=== PATIENT | female | born 1960 | race Caucasian/White ===

== ENCOUNTER 2022-05-30 12:42 | Emergency (ER) | payer BC ==
[2022-05-30] MEDS ORDERED: LIDOCAINE 1% MPF 30 ML VIAL ONE (13:31)
[2022-05-30] MEDS ORDERED: HYDROCODONE/APAP 10/325 TAB ONE (13:31)
--- NOTE | 2022-05-30 14:33 | ER ---
Nurse's Notes [facility] Name: Rosmery Leahy Age: 61 yrs Sex: Female : 1960 Arrival Date: 05/30/2022 Time: 12:46 Bed 8 Private MD: Diagnosis: Cutaneous abscess of face Presentation: 05/30 13:00 Chief complaint: Patient states: abscess to left side of face since Tuesday , swelling iw has spread to left orbital area. Coronavirus screen: At this time, the client does not indicate any symptoms associated with coronavirus-19. Ebola Screen: Patient negative for fever greater than or equal to 101.5 degrees Fahrenheit, and additional compatible Ebola Virus Disease symptoms Patient denies exposure to infectious person. Patient denies travel to an Ebola-affected area in the 21 days before illness onset. No symptoms or risks identified at this time. Initial Sepsis Screen: Does the patient meet any 2 criteria? No. Patient's initial sepsis screen is negative. Does the patient have a suspected source of infection? No. Patient's initial sepsis screen is negative. Risk Assessment: Do you want to hurt yourself or someone else? Patient reports no desire to harm self or others. Onset of symptoms was May 24, 2022. 13:00 Method Of Arrival: Ambulatory iw 13:00 Acuity: KWESI 3 iw Historical: - Allergies: 13:02 NKA; iw - Home Meds: 13:02 Atenolol Oral [Active]; amlodipine oral [Active]; iw - PMHx: 13:02 Hypertensive disorder; iw - PSHx: 13:02 ovary removed; iw - Immunization history:: Client reports receiving the 2nd dose of the Covid vaccine. - Social history:: Smoking status: Patient denies any tobacco usage or history of. - Family history:: not pertinent. - Hospitalizations: : No recent hospitalization is reported. Screenin:36 Abuse screen: Denies threats or abuse. Denies injuries from another. Nutritional ph screening: No deficits noted. Tuberculosis screening: No symptoms or risk factors identified. Fall Risk None identified. Assessment: 13:35 General: Appears in no apparent distress. comfortable, well groomed, Behavior is calm, ph cooperative, appropriate for age, Denies fever. Pain: Complains of pain in left sabianist. Neuro: Level of Consciousness is awake, alert, obeys commands, Oriented to person, place, time, situation. Derm: Skin is healthy with good turgor, Skin is pink, warm \T\ dry. Abscess located on left sabianist is half dollar sized, is red, is raised. Vital Signs: 13:00 BP 154 / 88; Pulse 70; Resp 16; Pulse Ox 100% on R/A; Weight 59.42 kg; Height 5 ft. 4 iw in. (162.56 cm); Pain 6/10; 14:05 BP 130 / 100; Pulse 69; Resp 18; Pulse Ox 99% on R/A; ph 15:00 BP 121 / 78; Pulse 67; Resp 18; Temp 97.9; Pulse Ox 99% on R/A; ph 13:00 Body Mass Index 22.49 (59.42 kg, 162.56 cm) iw ED Course: 12:46 Patient arrived in ED. am2 12:51 Brian Jauregui MD is Attending Physician. rn 12:52 Ivon Watson RN is Primary Nurse. ph 13:02 Triage completed. iw 13:03 Arm band placed on. iw 13:36 Patient has correct armband on for positive identification. Bed in low position. Pulse ph ox on. NIBP on. 14:20 Assist provider with I \T\ D: of an abscess on left sabianist. Patient did not have IV ph access during this emergency room visit. 15:26 Luan Day MD is Referral Physician. rn Administered Medications: 13:35 Drug: [place] (HYDROcodone-acetaminophen) 10 mg-325 mg 1 tabs Route: PO; ph 14:37 Follow up: Response: No adverse reaction ph 14:20 Drug: Lidocaine (1 %) 1 vials Volume: 20 ml; Route: Infiltration; ph 14:38 Follow up: Response: No adverse reaction ph Medication: 14:30 VIS not applicable for this client. ph Outcome: 13:36 Discharged to home ambulatory, with family. ph 13:36 Condition: good 13:36 Discharge instructions given to patient, Instructed on discharge instructions, follow up and referral plans. medication usage, wound care, Demonstrated understanding of instructions, follow-up care, medications, wound care, Prescriptions given X 2. 14:32 Discharge ordered by . rn 15:47 Patient left the ED. ph Signatures: Estela Stone RN Brian Gómez MD MD rn Hall, Patricia, Savanah Broussard RN, ph
--- NOTE | 2022-05-30 14:33 | EDPHYS ---
Physician Documentation [facility] Name: Rosmery Leahy Age: 61 yrs Sex: Female : 1960 Arrival Date: 05/30/2022 Time: 12:46 Bed 8 Private MD: ED Physician Brian Jauregui HPI: 05/30 14:20 This 61 yrs old Female presents to ER via Ambulatory with complaints of Facial Swelling rn - left mandaeism. 14:20 The patient presents with an abscess of the left mandaeism. Onset: The symptoms/episode rn began/occurred 5 day(s) ago. Possible cause(s): unknown. Associated signs and symptoms: Pertinent positives: swelling, Pertinent negatives: fever. Modifying factors: the symptoms are alleviated by nothing, the symptoms are aggravated by pressure, touching. Severity of symptoms: At their worst the symptoms were mild, in the emergency department the symptoms are unchanged. The patient has not experienced similar symptoms in the past. The patient has not recently seen a physician. Pt reports abscess/facial swelling to left mandaeism. No fever. Present for 5 days now, slowly growing and more painful. . Historical: - Allergies: 13:02 NKA; iw - Home Meds: 13:02 Atenolol Oral [Active]; amlodipine oral [Active]; iw - PMHx: 13:02 Hypertensive disorder; iw - PSHx: 13:02 ovary removed; iw - Immunization history:: Client reports receiving the 2nd dose of the Covid vaccine. - Social history:: Smoking status: Patient denies any tobacco usage or history of. - Family history:: not pertinent. - Hospitalizations: : No recent hospitalization is reported. ROS: 14:20 Constitutional: Negative for fever, chills, and weight loss, Eyes: Negative for injury, rn pain, redness, and discharge, ENT: Negative for injury, pain, and discharge, Cardiovascular: Negative for chest pain, palpitations, and edema, Respiratory: Negative for shortness of breath, cough, wheezing, and pleuritic chest pain, Abdomen/GI: Negative for abdominal pain, nausea, vomiting, diarrhea, and constipation, Skin: + swelling and pain to left mandaeism Exam: 14:20 Constitutional: This is a well developed, well nourished patient who is awake, alert, rn and in no acute distress. Head/Face: + cm area of fluctuance to left mandaeism, + surrounding erythema with mild swelling that extends to left periorbital region. No involvement of eye proper. Eyes: Pupils equal round and reactive to light, extra-ocular motions intact. Lids and lashes normal. Conjunctiva and sclera are non-icteric and not injected. Cornea within normal limits. Neuro: Awake and alert, GCS 15, oriented to person, place, time, and situation. Cranial nerves II-XII grossly intact. Motor strength 5/5 in all extremities. Sensory grossly intact. Cerebellar exam normal. Normal gait. Vital Signs: 13:00 BP 154 / 88; Pulse 70; Resp 16; Pulse Ox 100% on R/A; Weight 59.42 kg; Height 5 ft. 4 iw in. (162.56 cm); Pain 6/10; 14:05 BP 130 / 100; Pulse 69; Resp 18; Pulse Ox 99% on R/A; ph 15:00 BP 121 / 78; Pulse 67; Resp 18; Temp 97.9; Pulse Ox 99% on R/A; ph 13:00 Body Mass Index 22.49 (59.42 kg, 162.56 cm) iw Procedures: 14:20 I \T\ D: Incision and drainage was performed for an abscess of the. rn 14:24 I \T\ D: Prepped with Betadine, Anesthetized with 3 ml's 1% Lidocaine. Incised with #11 rn blade. Drained moderate amount purulent fluid. Packed with iodoform gauze, Dressing: sterile 4x4 gauze, the patient tolerated the procedure well. MDM: 12:52 Patient medically screened. rn 14:24 Differential diagnosis: abscess, cellulitis. Data reviewed: vital signs, nurses notes, rn and as a result, I will discharge patient. Counseling: I had a detailed discussion with the patient and/or guardian regarding: the historical points, exam findings, and any diagnostic results supporting the discharge/admit diagnosis, the need for outpatient follow up, to return to the emergency department if symptoms worsen or persist or if there are any questions or concerns that arise at home. Response to treatment: the patient's symptoms have mildly improved after treatment, and as a result, I will discharge patient. Special discussion: I discussed with the patient/guardian in detail that at this point there is no indication for admission to the hospital. It is understood, however, that if the symptoms persist or worsen the patient needs to return immediately for re-evaluation. Based on the history and exam findings, there is no indication for further emergent testing or inpatient evaluation. I discussed with the patient/guardian the need to see the primary care provider for further evaluation of the symptoms. 05/30 13:13 Order name: Incision \T\ Drainage Setup; Complete Time: 13:35 rn Administered Medications: 13:35 Drug: [place] (HYDROcodone-acetaminophen) 10 mg-325 mg 1 tabs Route: PO; ph 14:37 Follow up: Response: No adverse reaction ph 14:20 Drug: Lidocaine (1 %) 1 vials Volume: 20 ml; Route: Infiltration; ph 14:38 Follow up: Response: No adverse reaction ph Disposition Summary: 05/30/22 14:32 Discharge Ordered Location: Home rn Problem: new rn Symptoms: have improved rn Condition: Stable rn Diagnosis - Cutaneous abscess of face rn Followup: rn - With: Private Physician - When: 2 - 3 days - Reason: Recheck today's complaints, Re-evaluation by your physician Followup: rn - With: Luan Day MD - When: 2 - 3 days - Reason: Wound Recheck Discharge Instructions: - Discharge Summary Sheet rn - Skin Abscess rn - Incision and Drainage, Care After rn - Wound Packing rn Forms: - Medication Reconciliation Form rn - Thank You Letter rn - Antibiotic pipe turner - Prescription Opioid Use rn - Work release form ph Prescriptions: - Clindamycin HCl 300 mg Oral Capsule - take 1 capsule by ORAL route every 6 hours for 10 days; 40 capsule; Refills: 0, rn Product Selection Permitted - Tramadol 50 mg Oral Tablet - take 1 tablet by ORAL route every 8 hours as needed; 12 tablet; Refills: 0, rn Product Selection Permitted Signatures: Estela Stone RN RN Brian Verma MD MD rn Hall, Patricia, RN RN ph
[2022-05-30 15:53] VITALS: BP 130/100; O2SAT 99
== END 2022-05-30 15:47 | disposition home or self-care (01) ==
LOC: ER 12:42
PROC: 0H91XZZ Drainage of Face Skin, External Approach (ICD-10-PCS; principal; 2022-05-30)
DX: L02.01 Cutaneous abscess of face (principal); I10 Essential (primary) hypertension
CPT/HCPCS: 99284

== ENCOUNTER 2022-05-31 14:33 | Emergency (ER) | payer BC, SELFPAY ==
[2022-05-31] MEDS ORDERED: LIDOCAINE HCL JELLY 2% 6 ML SYRINGE TOP ONE (16:05)
[2022-05-31] MEDS ORDERED: IBUPROFEN 400 MG TAB ONE (16:06)
[2022-05-31] MEDS ORDERED: IBUPROFEN 200 MG TAB PO ONE (16:07)
[2022-05-31] MEDS ORDERED: HYDROCODONE/APAP 5/325 MG TAB ONE (16:08)
--- NOTE | 2022-05-31 16:40 | ER ---
Nurse's Notes [facility] Name: Rosmery Leahy Age: 61 yrs Sex: Female : 1960 Arrival Date: 05/31/2022 Time: 14:34 Bed 9 Private MD: Diagnosis: Encounter for attention to dressings, sutures and drains Presentation: 05/31 15:16 Chief complaint: Patient states: was seen yesterday in ED for wound on forehead and vg1 stated "the antibiotic dressing came out and was told it should stay in for a day in a half, im just a little concern". Coronavirus screen: Vaccine status: Client denies travel out of the [place] in the last 14 days. Ebola Screen: Patient negative for fever greater than or equal to 101.5 degrees Fahrenheit, and additional compatible Ebola Virus Disease symptoms Patient denies exposure to infectious person. Initial Sepsis Screen: Does the patient meet any 2 criteria? No. Patient's initial sepsis screen is negative. Does the patient have a suspected source of infection? No. Patient's initial sepsis screen is negative. Risk Assessment: Do you want to hurt yourself or someone else? Patient reports no desire to harm self or others. Onset of symptoms was May 31, 2022. 15:16 Method Of Arrival: Ambulatory vg1 15:16 Acuity: KWESI 4 vg1 Triage Assessment: 15:20 General: Appears in no apparent distress. uncomfortable, Behavior is calm, cooperative. vg1 Pain: Complains of pain in left sabianism. Historical: - Allergies: 15:20 NKA; vg1 - Home Meds: 15:20 Atenolol Oral [Active]; amlodipine oral [Active]; vg1 - PMHx: 15:20 Hypertensive disorder; vg1 - PSHx: 15:20 Ovary removed; vg1 - Immunization history:: Client reports receiving the 2nd dose of the Covid vaccine. - Social history:: Smoking status: Patient/guardian denies using tobacco, the patient reports quitting approximately 1 years ago. Screenin:46 Abuse screen: Denies threats or abuse. Nutritional screening: No deficits noted. kr3 Tuberculosis screening: No symptoms or risk factors identified. Fall Risk None identified. Assessment: 16:47 Reassessment: No changes from previously documented assessment. Patient and/or family kr3 updated on plan of care and expected duration. Pain level reassessed. Patient is alert, oriented x 3, equal unlabored respirations, skin warm/dry/pink. Vital Signs: 15:16 Pulse 75; Resp 16; Temp 98.5; Pulse Ox 100% ; Weight 59.42 kg; Height 5 ft. 4 in. vg1 (162.56 cm); Pain 6/10; 15:20 BP 145 / 89; vg1 16:47 BP 162 / 88; Pulse 75; Resp 17; Pulse Ox 100% on R/A; kr3 15:16 Body Mass Index 22.49 (59.42 kg, 162.56 cm) vg1 ED Course: 14:34 Patient arrived in ED. am2 15:11 Ton Costa PA is PHCP. cp 15:11 Brian Jauregui MD is Attending Physician. cp 15:16 Radha Kang, RN is Primary Nurse. kr3 15:20 Triage completed. vg1 15:20 Arm band placed on. vg1 15:25 Bed in low position. Call light in reach. Side rails up X 1. kr3 16:47 No provider procedures requiring assistance completed. Patient did not have IV access kr3 during this emergency room visit. Administered Medications: 16:16 Drug: Lidocaine Gel 2 % 1 application Route: Mucous Membrane; kr3 16:49 Follow up: Response: No adverse reaction kr3 16:16 Drug: HYDROcodone-acetaminophen 5 mg-325 mg 1 tabs Route: PO; kr3 16:48 Follow up: Response: No adverse reaction; RASS: Alert and Calm (0) kr3 16:16 Drug: Ibuprofen 600 mg Route: PO; kr3 16:48 Follow up: Response: No adverse reaction kr3 Medication: 16:47 VIS not applicable for this client. kr3 Outcome: 16:40 Discharge ordered by MD. cp 16:47 Discharged to home ambulatory. kr3 16:47 Condition: stable 16:47 Discharge instructions given to patient, Instructed on discharge instructions, follow up and referral plans. Demonstrated understanding of instructions, follow-up care. 16:48 Patient left the ED. kr3 Signatures: Ton Costa PA PA cp Moreno, Amanda am2 Sabrina Gunter RN RN vg1 Radha Kang, GLENN RN kr3
--- NOTE | 2022-05-31 16:40 | EDPHYS ---
Physician Documentation [facility] Name: Rosmery Leahy Age: 61 yrs Sex: Female : 1960 Arrival Date: 05/31/2022 Time: 14:34 Bed 9 Private MD: ED Physician Brian Jauregui HPI: 05/31 15:40 This 61 yrs old Female presents to ER via Ambulatory with complaints of Wound Recheck. cp 15:40 Patient presents to ED for recheck of: abscess. The affected area is on the left cp voodoo. Previous treatment: The patient was initially treated yesterday, the care was rendered at [facility], Treatment type: The patient's original treatment included an I\T\D, oral antibiotics, packing. Progress: The patient reports improved. Patient reports packing came out today. Historical: - Allergies: 15:20 NKA; vg1 - Home Meds: 15:20 Atenolol Oral [Active]; amlodipine oral [Active]; vg1 - PMHx: 15:20 Hypertensive disorder; vg1 - PSHx: 15:20 Ovary removed; vg1 - Immunization history:: Client reports receiving the 2nd dose of the Covid vaccine. - Social history:: Smoking status: Patient/guardian denies using tobacco, the patient reports quitting approximately 1 years ago. ROS: 15:45 Constitutional: Negative for body aches, chills, fever, poor PO intake. cp 15:45 Skin: Positive for cellulitis, of the left voodoo. cp 15:45 All other systems are negative. Exam: 15:50 Constitutional: The patient appears in no acute distress, alert, awake, non-toxic, well cp developed, well nourished. 15:50 Head/face: Noted is erythema, that is mild, of the left voodoo, swelling, that is cp mild, of the left voodoo, tenderness, that is mild, of the left voodoo. 15:50 Eyes: Periorbital structures: appear normal, Conjunctiva: normal, no exudate, no injection, Lids and lashes: appear normal, bilaterally. 15:50 ENT: External ear(s): are unremarkable, Nose: is normal, Mouth: Lips: moist, Oral mucosa: moist. 15:50 Neck: ROM/movement: is normal, is supple, without pain, no range of motions limitations. 15:50 Cardiovascular: Rate: normal. 15:50 Respiratory: the patient does not display signs of respiratory distress, Respirations: normal, no use of accessory muscles. 15:50 Skin: Wound recheck: Abscess: decreased discharge, decreased erythema, the packing is not in place. Vital Signs: 15:16 Pulse 75; Resp 16; Temp 98.5; Pulse Ox 100% ; Weight 59.42 kg; Height 5 ft. 4 in. vg1 (162.56 cm); Pain 6/10; 15:20 BP 145 / 89; vg1 16:47 BP 162 / 88; Pulse 75; Resp 17; Pulse Ox 100% on R/A; kr3 15:16 Body Mass Index 22.49 (59.42 kg, 162.56 cm) vg1 Procedures: 16:35 Performed repacking of abscess using 1/4 iodoform gauze and topical 2% lidocaine. cp MDM: 15:18 Patient medically screened. cp 16:40 Data reviewed: vital signs, nurses notes, and as a result, I will discharge patient. cp Administered Medications: 16:16 Drug: Lidocaine Gel 2 % 1 application Route: Mucous Membrane; kr3 16:49 Follow up: Response: No adverse reaction kr3 16:16 Drug: HYDROcodone-acetaminophen 5 mg-325 mg 1 tabs Route: PO; kr3 16:48 Follow up: Response: No adverse reaction; RASS: Alert and Calm (0) kr3 16:16 Drug: Ibuprofen 600 mg Route: PO; kr3 16:48 Follow up: Response: No adverse reaction kr3 Disposition Summary: 05/31/22 16:40 Discharge Ordered Location: Home cp Problem: new cp Symptoms: have improved cp Condition: Stable cp Diagnosis - Encounter for attention to dressings, sutures and drains cp Followup: cp - With: Private Physician - When: 1 - 2 days - Reason: Wound Recheck Discharge Instructions: - Discharge Summary Sheet cp - Wound Packing cp - Incision and Drainage, Care After cp Forms: - Medication Reconciliation Form cp - Thank You Letter cp - Antibiotic Education cp - Prescription Opioid Use cp Addendum: 06/03/2022 06:29 Co-signature as Attending Physician, Brian Jauregui MD. r n Signatures: Brian Jauregui MD MD rn Ton Costa PA PA cp Garcia, Victoria, RN RN 1 Radha Kang, RN RN kr3
[2022-05-31 17:21] VITALS: TEMP 98.5; O2SAT 100
[2022-05-31 17:23] VITALS: BP 162/88
== END 2022-05-31 16:48 | disposition home or self-care (01) ==
LOC: ER 14:33
DX: Z48.01 Encounter for change or removal of surgical wound dressing (principal)
CPT/HCPCS: 99283

== ENCOUNTER 2022-08-10 14:28 | Inpatient (IN) | payer SELFPAY ==
[2022-08-10 15:42] LABS: Absolute Lymphocytes (CBC) 2.1 K/uL (0.7-4.9); MCV 85.3 fL (80-100); MPV 6.6 fL (7.6-11.3); RBC Red Blood Cell Count 4.11 M/uL (3.86-4.86)
[2022-08-10 15:49] LABS: Protime INR 0.88
[2022-08-10 16:05] LABS: ALT/SGPT 29 U/L (13-56); AST/SGOT 29 U/L (15-37); Albumin 3.8 g/dL (3.4-5.0); Alkaline Phosphatase 91 U/L (45-117); BUN Blood Urea Nitrogen 14 mg/dL (7-18); Bicarbonate 23 mmol/L (21-32); Bilirubin Total 0.2 mg/dL (0.2-1.0); Glomerular Filtration Rate 83 ml/min (=/>90); Glucose Level 104 mg/dL (74-106); Magnesium 2.3 mg/dL (1.6-2.4); NT PRO-BNP 317 pg/mL (<125); Potassium 3.4 mmol/L (3.5-5.1); Protein, Total 7.5 g/dL (6.4-8.2); Sodium Level 141 mmol/L (136-145)
[2022-08-10 16:13] LABS: Bilirubin Direct < 0.1 mg/dL (0-0.2)
[2022-08-10 16:14] LABS: Troponin High Sensitivity 155.3 pg/mL (<58.9)
--- NOTE | 2022-08-10 16:31 | RAD REPORT ---
EXAM DESCRIPTION: RAD - Chest Single View - 08/10/2022 4:19 pm CLINICAL HISTORY: upper back pain COMPARISON: No comparisons FINDINGS: Lines: None. Lungs: No evidence of edema or pneumonia. Pleural: No significant pleural effusions or pneumothorax. Cardiac: Mild cardiomegaly. Mediastinum: Within normal limits. Bones: No acute fractures. Other: None IMPRESSION: No acute cardiopulmonary disease.
[2022-08-10] MEDS ORDERED: LORazepam 2 MG/ML VIAL ONE (17:09)
--- NOTE | 2022-08-10 17:36 | RAD REPORT ---
EXAM DESCRIPTION: CTAngio Aorta For Dissection - 08/10/2022 5:22 pm CLINICAL HISTORY: chest pain COMPARISON: No comparisons TECHNIQUE: CTA of the chest, abdomen, and pelvis was performed with IV contrast.MIP reconstructions were performed All CT scans are performed using dose optimization technique as appropriate and may include automated exposure control or mA/KV adjustment according to patient size. FINDINGS: Thorax: Chest Wall: No abnormal mass. Right breast prosthesis. Lungs: No acute abnormality. Pleura: No effusions or pneumothorax. Erika/Mediastinum: No lymphadenopathy. Aorta/Pulmonary Arteries: Unremarkable Heart: Normal size. Abdomen/Pelvis: Liver: No acute abnormality or suspicious lesions. Biliary: No biliary ductal dilatation. Cholelithiasis. No CT evidence of acute cholecystitis. Stomach: No significant focal abnormality. Duodenum: No significant focal abnormality. Pancreas: No significant abnormality. Spleen: No significant abnormality. Adrenal: No suspicious lesions. Kidney/ureter: No hydronephrosis. 2 mm stone in the right kidney. Mild renal scarring bilaterally. Retroperitoneum: No retroperitoneal adenopathy. Vascular: No aneurysm. Bowel: Normal appendix. No bowel obstruction.. Peritoneum: No ascites or free air. Bladder: Grossly unremarkable. Reproductive: No adnexal masses. Bones: No acute fracture.Multilevel degenerative changes are present in the spine. Other: n/a IMPRESSION: No acute findings within the chest, abdomen, or pelvis. No aortic aneurysm, aortic disse ction, or pulmonary embolus.
[2022-08-10] MEDS ORDERED: ASPIRIN 81 MG CHEWABLE TABLET ONE (17:56)
[2022-08-10] MEDS ORDERED: ENOXAPARIN 60 MG/0.6 ML SQ ONE (17:57)
[2022-08-10 18:03] LABS: Urine Blood Negative (Negative); Urine Glucose Negative (Negative); Urine Protein Negative (Negative); Urine pH 6.5 (5.0-7.0)
--- NOTE | 2022-08-10 18:07 | ER ---
Nurse's Notes [facility] Name: Rosmery Leahy Age: 61 yrs Sex: Female : 1960 Arrival Date: 08/10/2022 Time: 14:32 Bed 18 Private MD: Diagnosis: Dorsalgia, unspecified;Elevated troponin;Hypertensive heart disease without heart failure Presentation: 08/10 15:07 Chief complaint: Patient states: she starts having pain in her neck, between her ap3 shoulders then she gets a tightness in her chest. patient states that the pain will radiate down into her hips. Coronavirus screen: At this time, the client does not indicate any symptoms associated with coronavirus-19. Ebola Screen: No symptoms or risks identified at this time. Initial Sepsis Screen: Does the patient meet any 2 criteria? No. Patient's initial sepsis screen is negative. Does the patient have a suspected source of infection? No. Patient's initial sepsis screen is negative. Risk Assessment: Do you want to hurt yourself or someone else? Patient reports no desire to harm self or others. Onset of symptoms was August 10, 2022. 15:07 Method Of Arrival: Ambulatory ap3 15:07 Acuity: KWESI 3 ap3 Triage Assessment: 15:15 General: Appears. ap3 15:15 General: Appears in no apparent distress. Behavior is cooperative, anxious. Pain: ap3 Complains of pain in back Pain radiates to low back area. Neuro: Level of Consciousness is awake, alert, obeys commands, Oriented to person, place, time, situation, Gait is steady, Speech is normal. Cardiovascular: Patient's skin is warm and dry. Respiratory: Airway is patent Respiratory effort is even, unlabored. Historical: - Allergies: 15:13 No Known Allergies; ap3 - PMHx: 15:13 Hypertensive disorder; ap3 - PSHx: 15:13 Ovary removed; ap3 - Immunization history:: Client reports receiving the 2nd dose of the Covid vaccine. - Social history:: Smoking status: Patient reports the use of cigarette tobacco products, denies chronic smoking, but will smoke occasionally, Patient uses alcohol, occasionally. Patient uses street drugs, marijuana. Screenin:14 [facility] ED Fall Risk Assessment (Adult) History of falling in the last 3 months, ap3 including since admission No falls in past 3 months (0 pts). Abuse screen: Denies threats or abuse. Nutritional screening: No deficits noted. Tuberculosis screening: No symptoms or risk factors identified. Assessment: 17:00 General: Appears distressed, uncomfortable, Behavior is cooperative, appropriate for 3 age, anxious. Pain: Complains of pain in left clavicle Pain radiates to left scapular area. Neuro: Level of Consciousness is awake, alert, obeys commands, Oriented to person, place, time, situation. Cardiovascular: Capillary refill < 3 seconds Patient's skin is warm and dry. Respiratory: Airway is patent Respiratory effort is even, unlabored, Respiratory pattern is regular, symmetrical. 18:00 Reassessment: Patient appears in no apparent distress at this time. Patient and/or 3 family updated on plan of care and expected duration. Pain level reassessed. Patient is alert, oriented x 3, equal unlabored respirations, skin warm/dry/pink. Patient states symptoms have improved. 19:22 Reassessment: ASSUMED CARE OF PT. PT SITTING IN UP IN BED TALKING TO FAMILY. VS STABLE. jj7 NO PAIN OR DISTRESS AT THIS TIME. PT STATES SHE FEELS MUCH BETTER. COVID SWAB COLLECTED PT EATING AND DRINKING. NO NEEDS AT THIS TIME. CALL CHRISTIAN IN REACH. Vital Signs: 15:07 BP 164 / 97; Pulse 97; Resp 18; Temp 98.1; Pulse Ox 98% ; Weight 63.96 kg; Height 5 ft. ap3 4 in. (162.56 cm); 17:00 BP 147 / 80; Pulse 74; Resp 20; Pulse Ox 100% on R/A; eh3 18:00 BP 148 / 86; Pulse 85; Resp 20; Pulse Ox 100% on R/A; eh3 19:22 BP 135 / 80; Pulse 97; Resp 20; Pulse Ox 100% ; jj7 20:30 BP 122 / 69; Pulse 96; Resp 18; Pulse Ox 97% ; Pain 0/10; jj7 15:07 Body Mass Index 24.20 (63.96 kg, 162.56 cm) ap3 Vitals: 17:00 Cardiac Rhythm Assessment Sinus rhythm. [facility] ED Course: 14:32 Patient arrived in ED. rg4 14:53 Ton Costa PA is PHCP. cp 14:53 Romeo Chawla MD is Attending Physician. cp 15:13 Triage completed. ap3 15:16 Arm band placed on right wrist. ap3 15:33 Basic Metabolic Panel Sent. bc6 15:33 CBC with Diff Sent. bc6 15:34 LFT's Sent. bc6 15:34 Magnesium Sent. bc6 15:34 NT PRO-BNP Sent. bc6 15:34 PT-INR Sent. bc6 15:34 Troponin HS Sent. bc6 15:34 Initial lab(s) drawn, by me, sent to lab. Inserted saline lock: 20 gauge in left bc6 forearm, using aseptic technique. 15:45 Basic Metabolic Panel Sent. bc6 15:45 LFT's Sent. bc6 15:45 Magnesium Sent. bc6 15:45 NT PRO-BNP Sent. bc6 15:45 PT-INR Sent. bc6 15:46 Troponin HS Sent. bc6 16:21 XRAY Chest (1 view) In Process Unspecified. EDMS 16:40 Yandy Watson, RN is Primary Nurse. eh3 17:00 Patient has correct armband on for positive identification. Bed in low position. Call 3 light in reach. Side rails up X2. Adult w/ patient. Client placed on continuous cardiac and pulse oximetry monitoring. NIBP monitoring applied. Door closed. Noise minimized. Warm blanket given. 17:24 CT Aorta for Dissection In Process Unspecified. EDMS 18:04 Pawan Amador MD is Hospitalizing Provider. cp 18:10 Urine Microscopic Only Sent. eh3 19:33 SARS RAPID Sent. [facility] 21:21 No provider procedures requiring assistance completed. Patient admitted, IV remains in [facility]. Administered Medications: 17:00 Drug: Ativan (LORazepam) 0.5 mg Route: IVP; Site: right antecubital; 3 17:44 Follow up: Response: Pain is decreased; Anxiety decreased eh3 19:34 Follow up: Response: Anxiety decreased j7 17:54 Drug: Aspirin Chewable Tablet 324 mg Route: PO; eh3 19:34 Follow up: Response: No adverse reaction 7 17:54 Drug: Lovenox (enoxaparin) 1 mg/kg Route: Sub-Q; Site: abdomen; 3 22:28 Follow up: Response: No adverse reaction 3 Medication: 21:30 VIS not applicable for this client. jj7 Outcome: 18:06 Decision to Hospitalize by Provider. cp 21:29 Admitted to Med/surg accompanied by tech, via wheelchair, room 204, Report called to nick WARD RN 21:29 Condition: improved 22:19 Patient left the ED. nick Signatures: Dispatcher [employer] EDMS Ton Costa PA PA cp Garcia, Rubi rg4 Savanah Srivastava, RN RN ap3 Yandy Watson, RN RN 3 Mireille Diggs RN RN Josey Woodard 6 Corrections: (The following items were deleted from the chart) 15:14 15:13 Allergies: NKA; ap3 ap3 15:14 15:13 PMHx: Hypertensive disorder; ap3 ap3
--- NOTE | 2022-08-10 18:07 | EDPHYS ---
Physician Documentation [facility] Name: Rosmery Leahy Age: 61 yrs Sex: Female : 1960 Arrival Date: 08/10/2022 Time: 14:32 Bed 18 Private MD: ED Physician Romeo Chawla HPI: 08/10 15:20 This 61 yrs old Female presents to ER via Ambulatory with complaints of Anxiety. cp 15:20 The patient presents with pain that is chronic, with no known mechanism of injury, cp worse over past several days. 15:20 The symptoms are located in the left trapezius, right trapezius, left scapular area and cp right scapular area. The pain radiates to the chest. Associated signs and symptoms: Pertinent positives: chest pain, Pertinent negatives: abdominal pain, constipation, fever, numbness, weakness. The problem was sustained from a chronic condition, history of chronic back pain and was taking prescribed Neurontin in the past. Recent move to [place], so patient does not have a primary care physician. Historical: - Allergies: 15:13 No Known Allergies; ap3 - PMHx: 15:13 Hypertensive disorder; ap3 - PSHx: 15:13 Ovary removed; ap3 - Immunization history:: Client reports receiving the 2nd dose of the Covid vaccine. - Social history:: Smoking status: Patient reports the use of cigarette tobacco products, denies chronic smoking, but will smoke occasionally, Patient uses alcohol, occasionally. Patient uses street drugs, marijuana. ROS: 15:25 Constitutional: Negative for body aches, chills, fever, poor PO intake. cp 15:25 Eyes: Negative for injury, pain, redness, and discharge. cp 15:25 ENT: Negative for drainage from ear(s), ear pain, sore throat, difficulty swallowing, difficulty handling secretions. 15:25 Neck: Positive for pain with movement, pain at rest. 15:25 Cardiovascular: Positive for chest pain, Negative for edema, palpitations. 15:25 Respiratory: Negative for cough, shortness of breath, wheezing. 15:25 Abdomen/GI: Negative for abdominal pain, nausea, vomiting, and diarrhea. 15:25 Back: Positive for pain at rest, pain with movement, of the left trapezius, right trapezius, left scapular area and right scapular area, Negative for injury or acute deformity, decreased range of motion. 15:25 Skin: Negative for cellulitis, rash. 15:25 Neuro: Negative for altered mental status, numbness, syncope, weakness. 15:25 All other systems are negative. Exam: 15:24 ECG was reviewed by the Attending Physician. cp 15:30 Constitutional: The patient appears in no acute distress, alert, awake, cp non-diaphoretic, non-toxic, well developed, well nourished, anxious. 15:30 Head/Face: Normocephalic, atraumatic. cp 15:30 Eyes: Periorbital structures: appear normal, Conjunctiva: normal, no exudate, no injection, Sclera: no appreciated abnormality, Lids and lashes: appear normal, bilaterally. 15:30 ENT: External ear(s): are unremarkable, Nose: is normal, Mouth: Lips: moist, Oral mucosa: pink and intact, moist, Posterior pharynx: Airway: no evidence of obstruction, patent, swelling, is not appreciated, erythema, is not appreciated. 15:30 Neck: External neck: tenderness, that is mild, of the left trapezius, lower cervical area and right trapezius, ROM/movement: pain, that is mild, with any movement, limited range of motion, is not appreciated, nuchal rigidity, is not appreciated. 15:30 Chest/axilla: Inspection: normal. 15:30 Cardiovascular: Rate: normal, Rhythm: regular, Pulses: Pulses are 2+ in right radial artery and left radial artery. Edema: is not appreciated, JVD: is not appreciated. 15:30 Respiratory: the patient does not display signs of respiratory distress, Respirations: normal, no use of accessory muscles, no retractions, labored breathing, is not present, Breath sounds: are clear throughout, no decreased breath sounds, no stridor, no wheezing. 15:30 Abdomen/GI: Inspection: abdomen appears normal, Palpation: abdomen is soft and non-tender, in all quadrants. 15:30 Back: pain, that is moderate, of the left trapezius, right trapezius, left scapular area and right scapular area, ROM is normal. 15:30 Skin: no rash present. 15:30 Neuro: Orientation: to person, place \T\ time. Mentation: is normal, Motor: moves all fours, strength is normal, Sensation: is normal. Vital Signs: 15:07 BP 164 / 97; Pulse 97; Resp 18; Temp 98.1; Pulse Ox 98% ; Weight 63.96 kg; Height 5 ft. ap3 4 in. (162.56 cm); 17:00 BP 147 / 80; Pulse 74; Resp 20; Pulse Ox 100% on R/A; eh3 18:00 BP 148 / 86; Pulse 85; Resp 20; Pulse Ox 100% on R/A; eh3 19:22 BP 135 / 80; Pulse 97; Resp 20; Pulse Ox 100% ; jj7 20:30 BP 122 / 69; Pulse 96; Resp 18; Pulse Ox 97% ; Pain 0/10; jj7 15:07 Body Mass Index 24.20 (63.96 kg, 162.56 cm) ap3 MDM: 15:30 Patient medically screened. cp 16:00 Differential diagnosis: Abdominal Aortic Aneurysm chronic back pain, ruptured disc, cp vertebral fracture, acute [place], pulmonary embolism. 17:50 Data reviewed: vital signs, nurses notes, lab test result(s), EKG, radiologic studies, cp CT scan, plain films. 17:50 Test interpretation: by ED physician or midlevel provider: ECG, plain radiologic cp studies. 18:05 Physician consultation: Blaine SANTOS was called at 18:05, was contacted at 18:05, regarding admission, to the telemetry unit. patient's condition, and will see patient in ED, shortly. 18:05 Counseling: I had a detailed discussion with the patient and/or guardian regarding: the cp historical points, exam findings, and any diagnostic results supporting the discharge/admit diagnosis, lab results, radiology results, the need for further work-up and treatment in the hospital. Response to treatment: the patient's symptoms have markedly improved after treatment. 08/10 15:14 Order name: Basic Metabolic Panel; Complete Time: 16:15 cp 08/10 16:15 Interpretation: Normal except: K 3.4; CL 109; GFR 83. cp 08/10 15:14 Order name: CBC with Diff; Complete Time: 16:15 cp 08/10 16:15 Interpretation: Normal except: HGB 11.6; HCT 35.0; RDW 18.1; MPV 6.6. cp 08/10 15:14 Order name: LFT's; Complete Time: 16:15 cp 08/10 15:14 Order name: Magnesium; Complete Time: 16:15 cp 08/10 15:14 Order name: NT PRO-BNP; Complete Time: 16:15 cp 08/10 15:14 Order name: PT-INR; Complete Time: 16:15 cp 08/10 15:14 Order name: Troponin HS; Complete Time: 16:15 cp 08/10 16:15 Interpretation: Abnormal: Troponin HS 155.3. cp 08/10 15:14 Order name: XRAY Chest (1 view); Complete Time: 17:25 cp 08/10 17:25 Interpretation: Report review. cp 08/10 16:23 Order name: CT Aorta for Dissection; Complete Time: 17:47 cp 08/10 17:48 Interpretation: Report reviewed. cp 08/10 16:27 Order name: Urine Microscopic Only; Complete Time: 18:34 cp 08/10 18:34 Interpretation: Normal except: BYST Trace. cp 08/10 18:03 Order name: Urine Dipstick-Ancillary; Complete Time: 18:10 EDMS 08/10 18:43 Order name: SARS RAPID la1 08/10 15:14 Order name: EKG; Complete Time: 15:15 cp 08/10 15:14 Order name: Cardiac monitoring; Complete Time: 17:39 cp 08/10 15:14 Order name: EKG - Nurse/Tech; Complete Time: 18:19 cp 08/10 15:14 Order name: IV Saline Lock; Complete Time: 15:33 cp 08/10 15:14 Order name: Labs collected and sent; Complete Time: 15:34 cp 08/10 15:14 Order name: O2 Per Protocol; Complete Time: 16:39 cp 08/10 15:14 Order name: O2 Sat Monitoring; Complete Time: 16:39 cp 08/10 16:27 Order name: Urine Dipstick-Ancillary (obtain specimen); Complete Time: 18:10 cp EC:24 Rate is 76 beats/min. Rhythm is regular. IA interval is normal. QRS interval is normal. cp QT interval is normal. T waves are Inverted in lead aVR. Interpreted by me. Reviewed by me. Administered Medications: 17:00 Drug: Ativan (LORazepam) 0.5 mg Route: IVP; Site: right antecubital; eh3 17:44 Follow up: Response: Pain is decreased; Anxiety decreased eh3 19:34 Follow up: Response: Anxiety decreased jj7 17:54 Drug: Aspirin Chewable Tablet 324 mg Route: PO; 3 19:34 Follow up: Response: No adverse reaction jj7 17:54 Drug: Lovenox (enoxaparin) 1 mg/kg Route: Sub-Q; Site: abdomen; eh3 22:28 Follow up: Response: No adverse reaction eh3 Disposition Summary: 08/10/22 18:06 Hospitalization Ordered Hospitalization Status: Inpatient Admission cp Provider: Pawan Amador cp Location: Telemetry/MedSurg (Inpatient) cp Condition: Stable cp Problem: new cp Symptoms: have improved cp Bed/Room Type: Standard cp Room Assignment: 204(08/10/22 19:59) Diagnosis - Dorsalgia, unspecified cp - Elevated troponin cp - Hypertensive heart disease without heart failure cp Forms: - Medication Reconciliation Form cp - SBAR form cp Addendum: 08/15/2022 19:57 Co-signature as Attending Physician, Romeo Chawla MD I agree with the assessment and r t plan of care. Signatures: Dispatcher [employer] EDMS Teresa Cohn RN RN Blaine Lambert, AVIONICS SUPERVISOR-C AVIONICS SUPERVISOR-Cla1 Ton Costa PA PA cp Savanah Srivastava RN RN ap3 Yandy Watson RN RN 3 Romeo Chawla MD MD rt Mireille Diggs RN jj7 Corrections: (The following items were deleted from the chart) 08/10 15:14 15:13 Allergies: NKA; ap3 ap3 15:14 15:13 PMHx: Hypertensive disorder; ap3 ap3 19:59 18:06 cp mw
[2022-08-10 18:32] LABS: Urine Bacteria <20 /HPF (<20); Urine Crystals Unidentified Few /HPF (None Seen); Urine Mucus Slight /HPF (None Seen); Urine RBC <5 /HPF (None Seen)
[2022-08-10] MEDS ORDERED: METOPROLOL TAR 25 MG TAB ONE (19:22)
--- NOTE | 2022-08-10 19:28 | P.HP ---
Certification for Inpatient Patient admitted to: Inpatient With expected LOS: >2 Midnights Patient will require the following post-hospital care: None Practitioner: I am a practitioner with admitting privileges, knowledge of patient current condition, hospital course, and medical plan of care. Services: Services provided to patient in accordance with Admission requirements found in Title 42 Section 412.3 of the Code of Federal Regulations <MayelaBlaine rashid Dimitri Roy - Last Filed: 08/10/22 19:25> Patient History Date of Service: 08/10/22 Reason for admission: NSTEMI History of Present Illness: 61-year-old female with history of hypertension, hyperlipidemia, hypothyroidism who has been noncompliant with her medications presents to the emergency department for anxiety/back pain/chest pain. She reports pain at the base of her neck between shoulder blades rating around to her chest with associated shortness of breath. She was evaluated in the emergency department labs were significant for elevated high-sensitivity troponin 155.3, potassium 3.4 chest x- ray was performed which was negative for acute findings, CT dissection protocol was also performed which was negative for any acute aortic findings or pulmonary embolism. EKG was without ST elevations, ED provider wishes to admit for further valuation and management of NSTEMI. - Past Medical/Surgical History -: Hypertension -: Hyperlipidemia -: Hypothyroidism -: Oophorectomy Psychosocial/ Personal History: Patient is employed as a cashier checker, lives at home alone. - Family History Mother -: Heart disease Father -: Cancer - Social History Smoking Status: Current some day smoker Counseled patient to stop smoking for: less than 10 minutes Alcohol use: No CD- Drugs: No Caffeine use: Yes Place of Residence: Home <Blaine Lambert - Last Filed: 08/10/22 19:25> Date of Service: 08/11/22 <Pawan Amador - Last Filed: 08/11/22 18:51> Review of Systems 10-point ROS is otherwise unremarkable Respiratory: Shortness of Breath Cardiovascular: Chest Pain <Blaine Lambert - Last Filed: 08/10/22 19:25> Physical Examination - Physical Exam General: Alert, In no apparent distress, Obese HEENT: Atraumatic, PERRLA, Mucous membr. moist/pink, EOMI, Sclerae nonicteric Neck: Supple, 2+ carotid pulse no bruit, No LAD, Without JVD or thyroid abnormality Respiratory: Clear to auscultation bilaterally, Normal air movement Cardiovascular: No edema, Regular rate/rhythm, Normal S1 S2 Capillary refill: <2 Seconds Gastrointestinal: Normal bowel sounds, No tenderness Musculoskeletal: No tenderness Integumentary: No rashes Neurological: Normal speech, Normal strength at 5/5 x4 extr, Normal tone, Normal affect - Studies Laboratory Data (last 24 hrs) 08/10/22 15:30: PT 9.7, INR 0.88 08/10/22 15:30: WBC 6.20, Hgb 11.6 L, Hct 35.0 L, Plt Count 386 08/10/22 15:30: Sodium 141, Potassium 3.4 L, BUN 14, Creatinine 0.81, Glucose 104, Magnesium 2.3, Total Bilirubin 0.2, AST 29, ALT 29, Alkaline Phosphatase 91 <Blaine Lambert - Last Filed: 08/10/22 19:25> Assessment and Plan - Plan Assessment: NSTEMI Hypertension Hyperlipidemia Hypothyroidism Plan: NSTEMI: Trend troponins, monitor on telemetry, cardiology consult in place. Patient received aspirin, Lovenox in ED. Continue aspirin, statin, beta-b locker. Echocardiogram ordered. Hypertension: Patient has been noncompliant with her previous medications, initiated on metoprolol 25 p.o. twice daily, adjust/add medication as necessary. Hyperlipidemia: Continue with atorvastatin 40 mg Hypothyroidism: Thyroid panel morning, patient has not been previous medications. DVT PPX: Therapeutic Lovenox Code status: Full Discharge Plan: Home Plan to discharge in: 48 Hours - Advance Directives Does patient have a Living Will: No Does patient have a Durable POA for Healthcare: No - Code Status/Comfort Care Code Status Assessed: Yes (Full code) Critical Care: No Time Spent Managing Pts Care (In Minutes): 55 <Blaine Lambert - Last Filed: 08/10/22 19:25> Physician Review: Patient Assessed, Agree with Above Assessment and Plan <Pawan Amador - Last Filed: 08/11/22 18:51>
[2022-08-10 19:45] LABS: SARS-CoV-2 Antigen Rapid Res Negative (Negative)
[2022-08-10] MEDS ORDERED: ONDANSETRON 4 MG/2 ML VIAL IV PRN (22:36)
[2022-08-10] MEDS: ATORVASTATIN 40 MG TAB PO SCH (22:57)
[2022-08-10] MEDS: MORPHINE 2 MG/ML SYR IV PRN (22:57)
[2022-08-10 23:55] VITALS: BMI 24.2
[2022-08-11 03:57] LABS: Absolute Lymphocytes (CBC) 3.2 K/uL (0.7-4.9); Hematocrit 32.9 % (36.0-45.0); Lymphocytes % 39.2 % (15.3-44.8); MCV 85.2 fL (80-100); MPV 7.2 fL (7.6-11.3); RBC Red Blood Cell Count 3.86 M/uL (3.86-4.86)
[2022-08-11 04:16] LABS: ALT/SGPT 28 U/L (13-56); AST/SGOT 19 U/L (15-37); Alkaline Phosphatase 78 U/L (45-117); BUN Blood Urea Nitrogen 14 mg/dL (7-18); Bicarbonate 27 mmol/L (21-32); Glomerular Filtration Rate 89 ml/min (=/>90); Glucose Level 97 mg/dL (74-106); HDL Cholesterol 79 mg/dL (40-60); LDL Cholesterol, Calculated 113 mg/dL (<130); Potassium 3.3 mmol/L (3.5-5.1); Protein, Total 6.4 g/dL (6.4-8.2); Sodium Level 141 mmol/L (136-145); Thyroid Stimulating Hormone 0.734 uIU/mL (0.358-3.740)
[2022-08-11 04:18] LABS: Bilirubin Total < 0.1 mg/dL (0.2-1.0); Troponin High Sensitivity 148.5 pg/mL (<58.9)
[2022-08-11] MEDS: METOPROLOL TAR 25 MG TAB PO SCH ×2 (06:00→17:12)
[2022-08-11] MEDS ORDERED: NA CHLORIDE 0.9% 250 ML ONE ×3 (07:47→14:07)
[2022-08-11] MEDS: KCL 20 MEQ/100 mL IVPB 20 MEQ/100 ML BAG IV SCH ×2 (08:00→11:00)
[2022-08-11] MEDS: ASPIRIN EC 81 MG TAB PO SCH (08:01)
[2022-08-11] MEDS: MORPHINE 2 MG/ML SYR IV PRN ×2 (08:08→14:19)
[2022-08-11] MEDS ORDERED: HYDRALAZINE HCL 20 MG/ML VIAL IV PRN (12:35)
[2022-08-11 14:36] LABS: Specific Gravity < 1.005 (1.005-1.030); Urine Bilirubin NEGATIVE (Negative); Urine Blood Negative (Negative); Urine Clarity Clear (Clear); Urine Color Colorless (Yellow); Urine Glucose NEGATIVE (Negative); Urine Protein NEGATIVE (Negative); Urine Urobilinogen Normal (Normal)
--- NOTE | 2022-08-11 16:04 | EKG ---
Test Date: 2022-08-10 Test Time: 15:21:08 Detective And Intelligence Analyst: ALP MEASUREMENT RESULTS: Intervals: Rate: 76 OR: 162 QRSD: 88 QT: 384 QTc: 432 [place]: P: 91 OR: 162 QRS: 77 T: 59 INTERPRETIVE STATEMENTS: Normal sinus rhythm Anteroseptal infarct, age undetermined Abnormal ECG No previous ECG available for comparison Electronically Signed On 08-11-22 16:03:35 HEAD MILLER by Arthur Bender
--- NOTE | 2022-08-11 18:57 | P.PN ---
Subjective Date of Service: 08/11/22 Chief Complaint: NSTEMI No acute events overnight. She reports that her chest/back pain has subsided. She states that her symptoms occur without any obvious inciting or alleviating factors. She denies any shortness of breath or palpitations. Review of Systems 10-point ROS is otherwise unremarkable Cardiovascular: Chest Pain Musculoskeletal: Back Pain Physical Examination - Vital Signs Temperature: 97.7 F Blood Pressure: 180/92 Pulse: 82 Respirations: 16 Pulse Ox (%): 99 - Physical Exam General: Alert, In no apparent distress, Oriented x3 HEENT: Atraumatic, Mucous membr. moist/pink, EOMI, Sclerae nonicteric Neck: JVD not distended Respiratory: Clear to auscultation bilaterally, Normal air movement Cardiovascular: No edema, Regular rate/rhythm, Normal S1 S2, No gallops, No rubs, No murmurs Gastrointestinal: Normal bowel sounds, Soft and benign, Non-distended, No tende rness, No rebound, No guarding Musculoskeletal: No clubbing Integumentary: No rashes Neurological: Normal speech, Cranial nerves 3-12 intact, Normal affect Assessment And Plan - Plan # Chest Pain, concern for Acute Coronary Syndrome (Non-ST Segment Elevation Myocardial Infarction) # Hypertensive Urgency # Hyperlipidemia - Evaluation thus far: - EKG: without STEMI criteria, trend - Serial troponin: 155.3 -> 147.4 -> 148.5 - Ordered transthoracic echocardiogram - Chest x-ray = "No acute cardiopulmonary disease" - CT dissection protocol = "No acute findings within the chest, abdomen, or pelvis. No aortic aneurysm, aortic dissection, or pulmonary embolus." - Management plan: - Consult Cardiology and spoke with Dr. Johnson - recommendations appreciated - Continue aspirin, atorvastatin, metoprolol - Add lisinopril 5 mg daily Pawan Amador M.D.
[2022-08-11] MEDS ORDERED: POTASSIUM CL SA 10 MEQ TAB PO ONE (19:00)
[2022-08-11] MEDS: ATORVASTATIN 40 MG TAB PO SCH (21:10)
[2022-08-11] MEDS: lisinopriL 5 MG TAB PO SCH (21:10)
[2022-08-12] MEDS: MORPHINE 2 MG/ML SYR IV PRN (01:19)
[2022-08-12] MEDS: METOPROLOL TAR 25 MG TAB PO SCH (05:46)
[2022-08-12 05:50] VITALS: O2SAT 96
--- NOTE | 2022-08-12 06:53 | ECHO ---
HEIGHT: 5 ft 4 in WEIGHT: 141 lb 0 oz DATE OF STUDY: 08/11/[address]: Blaine Lambert NP 2-DIMENSIONAL: YES M.MODE: YES DOPPLER: YES COLOR FLOW: YES TDS: PORTABLE: DEFINITY: BUBBLE STUDY: DIAGNOSIS: NON ST ELEVATION MYOCARDIAL INFARCTION CARDIAC HISTORY: CATHERIZATION: SURGERY: PROSTHETIC VALVE: PACEMAKER: MEASUREMENTS (cm) DIASTOLIC (NORMALS) SYSTOLIC (NORMALS) IVSd 1.1 (0.6-1.2) LA Diam 3.4 (1.9-4.0) LVEF 59% LVIDd 3.7 (3.5-5.7) LVIDs 2.6 (2.0-3.5) %FS 31% LVPWd 1.3 (0.6-1.2) Ao Diam 3.0 (2.0-3.7) 2 DIMENSIONAL ASSESSMENT: RIGHT ATRIUM: NORMAL LEFT ATRIUM: NORMAL RIGHT VENTRICLE: NORMAL LEFT VENTRICLE: NORMAL TRICUSPID VALVE: MILD TRICUSPID REGURGITATION MITRAL VALVE: MILD MITRAL REGURGITATION PULMONIC VALVE: NORMAL AORTIC VALVE: MILD AORTIC INSUFFICIENCY PERICARDIAL EFFUSION: TRACE AORTIC ROOT: NORMAL LEFT VENTRICULAR WALL MOTION: NORMAL DOPPLER/COLOR FLOW: SEE BELOW COMMENTS: 1. NORMAL LEFT VENTRICULAR EJECTION FRACTION 55-60% 2. NORMAL WALL MOTION 3. MILD TRICUSPID REGURGITATION 4. MILD MITRAL REGURGITATION 5. MILD AORTIC INSUFFICIENCY TECHNOLOGIST: DANIKA MILLAN
[2022-08-12] MEDS: ASPIRIN EC 81 MG TAB PO SCH (08:45)
[2022-08-12] MEDS: lisinopriL 5 MG TAB PO SCH (08:45)
--- NOTE | 2022-08-12 08:57 | P.DS ---
Admission Date: 08/10/22 Discharge Date: 08/12/22 Disposition: ROUTINE DISCHARGE Discharge Condition: GOOD Reason for Admission: NSTEMI Consultations: 1. Cardiology Hospital Course: DIAGNOSES: # Hypertensive Urgency # Type II Non-ST Segment Elevation Myocardial Infarction (Demand Ischemia) secondary to above # Hyperlipidemia HOSPITAL COURSE: Ms. Rosmery Thakkar is a pleasant 61 year old female with a past medical history significant for hypertension and hyperlipidemia who was admitted to the [facility] on 08/10/2022 for chest pain. She was admitted to the Medicine service. Upon further evaluation, her EKG was without STEMI criteria. Her troponin trend was 155.3 -> 147.4 -> 148.5. Her transthoracic echocardiogram, "1. normal left ventricular ejection fraction 55- 60%. 2. normal wall motion. 3. mild tricuspid regurgitation. 4. mild mitral regurgitation. 5. mild aortic insufficiency." Her chest x-ray revealed, "no acute cardiopulmonary disease." Her CT dissection protocol revealed, "no acute findings within the chest, abdomen, or pelvis. No aortic aneurysm, aortic dissection, or pulmonary embolus." Cardiology was consulted and she was evaluated by Dr. Johnson. He has cleared her for discharge with an outpatient work-up. On 08/12/2022, she was seen on morning rounds and deemed medically stable for discharge. She was discharged with instructions to schedule follow-up appointments with her PCP and with Cardiology (Dr. Johnson). She was provided prescriptions for atorvastatin, metoprolol, and lisinopril. She was given the opportunity to ask questions and reported no further questions. Furthermore, all questions were answered to the best of my ability. A copy of this discharge summary will be sent to the above providers to facilitate continuity of care. Today, I personally spent 25 minutes on her case, of which greater than 50% of the time was spent in patient education, counseling, and coordination of care as described above. - Physical Exam General: Alert, In no apparent distress, Oriented x3 HEENT: Atraumatic, Mucous membr. moist/pink, EOMI, Sclerae nonicteric Neck: JVD not distended Respiratory: Clear to auscultation bilaterally, Normal air movement Cardiovascular: No edema, Regular rate/rhythm, Normal S1 S2, No gallops, No rubs, No murmurs Gastrointestinal: Soft and benign, Non-distended, No tenderness, No rebound, No guarding Musculoskeletal: No clubbing Integumentary: No rashes Neurological: Normal speech, Normal affect Vital Signs/Physical Exam: Temp Pulse Resp BP Pulse Ox 97.3 F 82 18 128/71 96 08/12/22 04:00 08/12/22 08:45 08/12/22 04:00 08/12/22 08:45 08/12/22 04:00 Laboratory Data at Discharge: WBC 8.00 K/uL (4.3-10.9) 08/11/22 03:05 Hgb 10.8 g/dL (12.0-15.0) L 08/11/22 03:05 Hct 32.9 % (36.0-45.0) L 08/11/22 03:05 Plt Count 336 K/uL (152-406) 08/11/22 03:05 PT 9.7 SECONDS (9.5-12.5) 08/10/22 15:30 INR 0.88 08/10/22 15:30 Sodium 140 mmol/L (136-145) 08/12/22 03:10 Potassium 4.0 mmol/L (3.5-5.1) 08/12/22 03:10 BUN 8 mg/dL (7-18) 08/12/22 03:10 Creatinine 0.75 mg/dL (0.55-1.02) 08/12/22 03:10 Glucose 103 mg/dL (74-106) 08/12/22 03:10 Magnesium 2.3 mg/dL (1.6-2.4) 08/10/22 15:30 Total Bilirubin < 0.1 mg/dL (0.2-1.0) L 08/11/22 03:05 AST 19 U/L (15-37) 08/11/22 03:05 ALT 28 U/L (13-56) 08/11/22 03:05 Alkaline Phosphatase 78 U/L (45-117) 08/11/22 03:05 Triglycerides 268 mg/dL (<150) H 08/11/22 03:05 Cholesterol 246 mg/dL (<200) H 08/11/22 03:05 HDL Cholesterol 79 mg/dL (40-60) H 08/11/22 03:05 Cholesterol/HDL Ratio 3.11 08/11/22 03:05 Home Medications: Aspirin Chewable [Aspirin Chewable*] 81 mg PO DAILY #1 tab.chew 08/12/22 Atorvastatin Calcium 40 mg PO BEDTIME #30 tab 08/12/22 Metoprolol Tartrate 25 mg PO BID 6AM 6PM #60 tab 08/12/22 lisinopriL [Lisinopril] 5 mg PO DAILY #30 tab 08/12/22 New Medications: Aspirin Chewable [Aspirin Chewable*] 81 mg PO DAILY #1 tab.chew Atorvastatin Calcium 40 mg PO BEDTIME #30 tab lisinopriL [Lisinopril] 5 mg PO DAILY #30 tab Metoprolol Tartrate 25 mg PO BID 6AM 6PM #60 tab Physician Discharge Instructions: 1. Please call and schedule a follow-up appointment with your PCP in 3-5 days 2. Please call and schedule a follow-up appointment with Cardiology (Dr. Johnson) in 5-7 days Diet: AHA Activity: Ad ruslan Followup: NONE,NONE [Primary Care Provider] - Matt Johnson MD [ACTIVE - CAN ADMIT] - Time spent managing pt's care (in minutes): 25
[2022-08-12] MEDS ORDERED: ENOXAPARIN 40 MG/0.4 ML SQ SCH (09:00)
[2022-08-12 12:40] VITALS: BP 159/77; TEMP 97.4
--- NOTE | 2022-08-17 18:19 | CON ---
Date of Consult: 08/11/2022 Reason For Consultation: Admitted to Dr. Amador on 08/10/2022 for chest pain, atypical, elevated troponin, mild hypokalemia, hypertension. History Of Present Illness: Ms. Thakkar is 61, came in with atypical chest pain. Troponin was 148. Echocardiogram showed mild aortic regurgitation. She was hypokalemic. Pain is very atypical. Denied any nausea, vomiting, diaphoresis, PND, orthopnea, pedal edema, palpitations, or syncope. She is feeling better now. Her EKG is normal. Past Medical History: Includes hypertension. Allergies: NONE. Review of Systems: Negative. Social History: Negative. Family History: Negative. Medications: At home include aspirin, Lipitor, metoprolol, and lisinopril. Physical Examination: Vital Signs: Stable, afebrile. HEENT: Negative. Neck: Supple with no bruit. Chest: Clear. Cardiac: Revealed a regular rhythm and rate. No murmurs, gallops, or rubs. Abdomen: Benign. Extremities: Revealed no clubbing, cyanosis, or edema. Diagnostic Data: Showed dyslipidemia. Potassium is 3.3. Troponin is 148, trended down. Echocardiogram, normal ejection fraction with mild aortic regurgitation. Impression And Plan: Atypical chest pain, hypertension, hypokalemia, dyslipidemia. The patient is on appropriate therapy. She is feeling fine. Echocardiogram showed normal EF with mild aortic regurgitation, no wall motion abnormality. I am comfortable with Ms. Thakkar going home. We will make arrangements for her to have an outpatient Lexiscan. KELVIN/SHELLIE Voice ID: [id number] Report ID: [id number] KAVON
== END 2022-08-12 13:30 | disposition home or self-care (01) | DRG 282 ==
LOC: ER 14:28 → ERHOLD 18:41 → 2ND 21:33
PROVIDERS: ADMIT Internal Medicine; ATTEND Internal Medicine
DX: I16.0 Hypertensive urgency (principal); I21.A1 Myocardial infarction type 2; E78.5 Hyperlipidemia, unspecified; E87.6 Hypokalemia; I35.1 Nonrheumatic aortic (valve) insufficiency; E03.9 Hypothyroidism, unspecified; M54.9 Dorsalgia, unspecified; F17.210 Nicotine dependence, cigarettes, uncomplicated; Z71.6 Tobacco abuse counseling; F12.90 Cannabis use, unspecified, uncomplicated; Z91.14 Patient's other noncompliance with medication regimen; Z20.822 Contact with and (suspected) exposure to COVID-19; Z79.82 Long term (current) use of aspirin; Z79.899 Other long term (current) drug therapy; Z90.721 Acquired absence of ovaries, unilateral; Z80.9 Family history of malignant neoplasm, unspecified; Z82.49 Family history of ischemic heart disease and other diseases of the circulatory system
CPT/HCPCS: 36415; 71045; 71275; 74175; 80048; 80053; 80061; 80076; 81003; 81015; 83735; 83880; 84132; 84439; 84443; 84484; 85025; 85610; 87811; 93005; 93306; 96372; 96374; 99285; J0360; J1650; J2270; J3480; J7050; Q9967

== ENCOUNTER 2023-01-11 19:59 | Inpatient (IN) | payer SELFPAY ==
[2023-01-11] MEDS ORDERED: LIDOCAINE 1% MPF 5 ML VIAL ONE (21:00)
[2023-01-11] MEDS ORDERED: TETANUS & DIPHTHERIA TOX,ADULT 0.5 ML VIAL ONE (21:01)
[2023-01-11] MEDS ORDERED: ONDANSETRON 4 MG/2 ML VIAL ONE (21:01)
[2023-01-11] MEDS ORDERED: MORPHINE 4 MG/ML SYR ONE ×2 (21:01→22:29)
[2023-01-11 21:38] LABS: Absolute Lymphocytes (CBC) 1.2 K/uL (0.7-4.9); Hematocrit 33.2 % (36.0-45.0); Lymphocytes % 12.6 % (15.3-44.8); MCV 88.6 fL (80-100); MPV 7.1 fL (7.6-11.3); RBC Red Blood Cell Count 3.74 M/uL (3.86-4.86)
[2023-01-11 21:57] LABS: Albumin 4.1 g/dL (3.4-5.0); Bilirubin Direct 0.2 mg/dL (0-0.2); Bilirubin Indirect, Calculated 0.5 mg/dL (0.2-0.8); Bilirubin Total 0.7 mg/dL (0.2-1.0); Potassium 3.5 mEq/L (3.5-5.1); Protein, Total 7.5 g/dL (6.4-8.2)
[2023-01-11] MEDS ORDERED: LORazepam 2 MG/ML VIAL ONE (22:29)
--- NOTE | 2023-01-11 22:29 | RAD REPORT ---
EXAM DESCRIPTION: RAD - Chest Single View - 01/11/2023 10:16 pm CLINICAL HISTORY: CHEST PAIN Chest pain. COMPARISON: Chest Single View dated 08/10/2022 FINDINGS: Portable technique limits examination quality. The lungs are grossly clear. The heart is upper limit of normal in size. No displaced fractures. IMPRESSION: No acute intrathoracic process suspected.
--- NOTE | 2023-01-11 22:30 | RAD REPORT ---
EXAM DESCRIPTION: RAD - Femur Left - 01/11/2023 10:17 pm CLINICAL HISTORY: left hip pain COMPARISON: No comparisons FINDINGS: Intratrochanteric fracture the proximal left femur is seen. No dislocation is evident.
--- NOTE | 2023-01-11 23:00 | ER ---
Nurse's Notes [facility] Name: Rosmery Leahy Age: 62 yrs Sex: Female : 1960 Arrival Date: 01/11/2023 Time: 19:59 Bed 7 Private MD: Diagnosis: Left femur intertrochanteric fracture, left facial temporal laceration initial encounter. Acute fall at home;Nondisplaced intertrochanteric fracture of left femur, initial encounter for closed fracture Presentation: 01/11 20:03 Chief complaint: EMS states: fell backwards off of kitchen counter at 1830. lg3 approximately 3ft. landed on left hip and left wrist with pain 9/10 on movement. 1/10 with no movement. small laceration to left eyebrow. bleeding controlled. pelvic binder via sheet and C collar placed PATIENT FINANCIAL COUNSELOR. 1000 mg offermev administered PATIENT FINANCIAL COUNSELOR. Coronavirus screen: Client denies travel out of the [place] in the last 14 days. At this time, the client does not indicate any symptoms associated with coronavirus-19. Ebola Screen: No symptoms or risks identified at this time. Initial Sepsis Screen: Does the patient meet any 2 criteria? No. Patient's initial sepsis screen is negative. Does the patient have a suspected source of infection? No. Patient's initial sepsis screen is negative. Risk Assessment: Do you want to hurt yourself or someone else? Patient reports no desire to harm self or others. Onset of symptoms was January 11, 2023. 20:03 Method Of Arrival: EMS: [facility] lg3 20:03 Acuity: KWESI 3 lg3 Triage Assessment: 20:11 General: Appears in no apparent distress. uncomfortable, Behavior is calm, cooperative. lg3 Pain: Complains of pain in left hip, left wrist. EENT: No deficits noted. No signs and/or symptoms were reported regarding the EENT system. Neuro: No deficits noted. Dee Agitation-Sedation Scale (RASS): 0 - Alert and Calm Level of Consciousness is awake, alert, obeys commands, Oriented to person, place, time, situation, Rn Diabetes are equal bilaterally Speech is normal. Cardiovascular: No deficits noted. Denies chest pain, shortness of breath, Capillary refill < 3 seconds Clubbing of nail beds is absent JVD is absent Patient's skin is warm and dry. Respiratory: No deficits noted. Airway is patent Respiratory effort is even, unlabored, Respiratory pattern is regular, symmetrical. GI: No deficits noted. No signs and/or symptoms were reported involving the gastrointestinal system. Abdomen is flat, non-distended. : No deficits noted. No signs and/or symptoms were reported regarding the genitourinary system. Derm: Skin is intact, is healthy with good turgor, Skin is dry, Skin is normal, Skin temperature is warm Wound noted outer aspect of left eyebrow. Musculoskeletal: Circulation, motion, and sensation intact. Range of motion: limited in left hip Reports pain in left hip, left wrist. Historical: - Allergies: 20:11 No Known Allergies; lg3 - Home Meds: 20:11 amlodipine oral [Active]; Lisinopril Oral [Active]; lg3 - PMHx: 20:11 Hypertensive disorder; lg3 - PSHx: 20:11 Ovary removed; lg3 - Immunization history:: Adult Immunizations up to date, Client reports receiving the 2nd dose of the Covid vaccine. - Social history:: Smoking status: Patient denies any tobacco usage or history of. Patient/guardian denies using alcohol, street drugs. - Family history:: not pertinent. Screenin:14 [facility] ED Fall Risk Assessment (Adult) History of falling in the last 3 months, lg3 including since admission Yes- single mechanical fall (1 pt) Confusion or Disorientation No (0 pts) Intoxicated or Sedated No (0 pts) Impaired Gait No (0 pts) Mobility Assist Device Used No (0 pt) Altered Elimination No (0 pt) Score/Fall Risk Level 0 - 2 = Low Risk Oriented to surroundings, Maintained a safe environment, Educated pt \T\ family on fall prevention, incl call for assistance when getting out of bed. Abuse screen: Denies threats or abuse. Denies injuries from another. Nutritional screening: No deficits noted. Tuberculosis screening: No symptoms or risk factors identified. Assessment: 20:14 General: see triage assessment . lg3 21:59 Reassessment: Patient appears in no apparent distress at this time. No changes from lg3 previously documented assessment. Patient and/or family updated on plan of care and expected duration. Pain level reassessed. Patient is alert, oriented x 3, equal unlabored respirations, skin warm/dry/pink. Pain: Complains of pain in left hip. Vital Signs: 20:03 BP 145 / 83; Pulse 75; Resp 18 S; Temp 97.5(O); Pulse Ox 100% on R/A; Weight 61.69 kg lg3 (R); Height 5 ft. 4 in. ; 22:00 BP 148 / 93; Pulse 84; Resp 17 S; Pulse Ox 100% on R/A; lg3 20:03 Body Mass Index 23.34 (61.69 kg, 162.56 cm) lg3 ED Course: 20:01 Patient arrived in ED. jj6 20:08 Triage completed. lg3 20:11 Arm band placed on right wrist. lg3 20:14 Patient has correct armband on for positive identification. Placed in gown. Bed in low lg3 position. Call light in reach. Side rails up X 1. Client placed on continuous cardiac and pulse oximetry monitoring. NIBP monitoring applied. casino floor person on. Door closed. Noise minimized. Warm blanket given. 20:14 Maintain EMS IV. Dressing intact. Good blood return noted. Site clean \T\ dry. Gauge \T\ lg 3 site: 20 right wrist. 20:14 Rossy cervical collar applied and checked by physician. lg3 20:25 Steve Rivera MD is Attending Physician. sp4 21:16 Camila Jo, RN is Primary Nurse. lg3 21:46 LFT's Sent. lg3 21:46 Basic Metabolic Panel Sent. lg3 21:46 Type And Screen Sent. lg3 21:58 SARS RAPID Sent. lg3 21:58 Inserted saline lock: 22 gauge in right forearm, using aseptic technique. lg3 22:10 Hawley cath inserted, using sterile technique, 16 Fr., by oh, balloon inflated, to lg3 gravity drainage, urine specimen collected. Patient tolerated well. 22:24 XRAY Chest (1 view) In Process Unspecified. EDMS 22:24 Femur Left XRAY In Process Unspecified. EDMS 22:59 Pawan Amador MD is Hospitalizing Provider. sp4 23:06 Alcohol Level Sent. lg3 23:40 Head C Spine MPR Wo Con CT In Process Unspecified. EDMS 23:46 Pelvis In Process Unspecified. EDMS 06 00:59 No provider procedures requiring assistance completed. Patient admitted, IV remains in lg3 place. intact, No redness/swelling at site. 02:37 Antibody Identification Sent. lg3 Administered Medications: 01/11 21:57 Drug: Tetanus-Diphtheria Toxoid IM Adult 0.5 ml {National Account Executive: [employer]. Exp: lg3 01/16/2024. Lot #: [id number]. } Route: IM; Site: right deltoid; 01/12 00:53 Follow up: Response: (VIS) Vaccine information sheet provided today. Questions and/or lg3 concerns addressed. VIS edition date: Mar 13, 2021.; No adverse reaction 01/11 21:58 Drug: morphine IVP or IV 4 mg Route: IVP; Infused Over: 4 mins; Site: right forearm; lg3 01/12 00:53 Follow up: Response: No adverse reaction lg3 01/11 21:58 Drug: Ondansetron IVP 4 mg Route: IVP; Site: right forearm; lg3 01/12 00:53 Follow up: Response: No adverse reaction lg3 01/11 22:26 Drug: Ativan IVP 1 mg Route: IVP; Site: right forearm; lg3 01/12 00:53 Follow up: Response: No adverse reaction; Anxiety decreased; RASS: Drowsy (-1) lg3 01/11 22:27 Drug: morphine IVP or IV 4 mg Route: IVP; Infused Over: 4 mins; Site: right forearm; lg3 01/12 00:52 Follow up: Response: No adverse reaction; Pain is decreased lg3 00:58 Drug: Lidocaine Infiltration (1 %) 20 ml Volume: 20 ml; Route: Infiltration; lg3 00:59 Follow up: Response: No adverse reaction lg3 Medication: 01/11 21:58 Vaccine Information Statement (VIS) provided today. Questions and/or concerns lg3 addressed. VIS edition date: March 13, 2021. Outcome: 23:00 Decision to Hospitalize by Provider. sp4 01/12 00:59 Admitted to Med/surg accompanied by nurse, via stretcher, room 409, Report called to 3 Bindu Condition: stable Instructed on the need for admit, Demonstrated understanding of instructions. 03:19 Patient left the ED. jb4 Signatures: Dispatcher [employer] EDMS Randall Donato RN RN jb4 Camila Jo RN RN lg3 Marianne Gong6 Steve Rivera MD MD sp4 Corrections: (The following items were deleted from the chart) 01/11 22:27 22:27 Inserted saline lock: 22 gauge in right antecubital area, using aseptic lg3 technique. Blood collected. lg3
--- NOTE | 2023-01-11 23:01 | EDPHYS ---
Physician Documentation [facility] Name: Rosmery Leahy Age: 62 yrs Sex: Female : 1960 Arrival Date: 01/11/2023 Time: 19:59 Bed 7 Private MD: ED Physician Steve Rivera HPI: 01/11 20:25 This 62 yrs old Female presents to ER via EMS with complaints of Hip Pain. sp4 22:48 Very pleasant 62-year-old female with history of hypertension history of prior tobacco sp4 smoking history of arthritis presents with acute fall at home at her neighbor's house associated with severe pain in the left hip and small laceration left temporal area. Patient denied neck pain or headache. She arrived and c-collar. C-collar was discontinued secondary to neck axis criteria being negative. Primary complaint is moderate to severe proximal left thigh pain hip pain inability to bear weight. . Historical: - Allergies: 20:11 No Known Allergies; lg3 - Home Meds: 20:11 amlodipine oral [Active]; Lisinopril Oral [Active]; lg3 - PMHx: 20:11 Hypertensive disorder; lg3 - PSHx: 20:11 Ovary removed; lg3 - Immunization history:: Adult Immunizations up to date, Client reports receiving the 2nd dose of the Covid vaccine. - Social history:: Smoking status: Patient denies any tobacco usage or history of. Patient/guardian denies using alcohol, street drugs. - Family history:: not pertinent. ROS: 22:48 Constitutional: Negative for fever, chills, and weight loss, positive acute fall, sp4 positive left hip pain positive for left temporal laceration to face Eyes: Negative for injury, pain, redness, and discharge, ENT: Negative for injury, pain, and discharge, Neck: Negative for injury, pain, and swelling, Cardiovascular: Negative for chest pain, palpitations, and edema, Respiratory: Negative for shortness of breath, cough, wheezing, and pleuritic chest pain, Abdomen/GI: Negative for abdominal pain, nausea, vomiting, diarrhea, and constipation, Back: Negative for injury and pain, : Negative for injury, bleeding, discharge, and swelling, MS/Extremity: Positive pain, deformity, severe tenderness, left hip positive inability to bear weight Skin: Negative for rash, and discoloration, positive for left temporal laceration that is small Neuro: Negative for headache, weakness, numbness, tingling, and seizure, Psych: Negative for depression, anxiety, Allergy/Immunology: Negative for hives, rash, and allergies Endocrine: Negative for neck swelling, polydipsia, polyuria, polyphagia, and weight changes Hematologic/Lymphatic: Negative for swollen nodes, abnormal bleeding, and unusual bruising Exam: 22:48 Constitutional: This is a well developed, well nourished patient who is awake, alert, sp4 and in no acute distress. Patient arrived on EMS stretcher with c-collar in place and pelvic binder in place. Head/Face: Normocephalic, small left temporal contusion and small 1 cm left temporal laceration that is linear. No active bleeding Eyes: Pupils equal round and reactive to light, extra-ocular motions intact. Lids and lashes normal. Conjunctiva and sclera are not injected. Cornea within normal limits. Periorbital areas with no swelling, redness, or edema. ENT: Nares patent. No nasal discharge, no septal abnormalities noted. Tympanic membranes are normal and external auditory canals are clear. Oropharynx with no redness, swelling, or masses, exudates, or evidence of obstruction, uvula midline. Mucous membranes moist. Neck: Trachea midline, no thyromegaly or masses palpated, and no cervical lymphadenopathy. Supple, full range of motion without nuchal rigidity, or vertebral point tenderness. No Meningismus. Chest/axilla: Normal chest wall appearance and motion. Nontender with no deformity. No lesions are appreciated. Cardiovascular: Regular rate and rhythm with a normal S1 and S2. No gallops, murmurs, or rubs. Normal PMI, no JVD. No pulse deficits. Respiratory: Lungs have equal breath sounds bilaterally, clear to auscultation and percussion. No rales, rhonchi or wheezes noted. No increased work of breathing, no retractions or nasal flaring. Abdomen/GI: Soft, non-tender, with normal bowel sounds. No distension or tympany. No guarding or rebound. No evidence of tenderness throughout. Back: No spinal tenderness. No costovertebral tenderness. Female : Normal external genitalia. Skin: Warm, dry with normal turgor. Normal color with no rashes, no lesions, and no evidence of cellulitis. Left temporal laceration to the face MS/ Extremity: Pulses equal, no cyanosis. Neurovascular intact. Positive for left proximal hip tenderness positive moderate decreased range of motion left hip positive shortened left lower extremity. Intact peripheral pulses Neuro: Awake and alert, GCS 15, oriented to person, place, time, and situation. Cranial nerves II-XII grossly intact. Motor strength 5/5 in all extremities. Sensory grossly intact. Psych: Awake, alert, with orientation to person, place and time. Behavior, mood, and affect are within normal limits Vital Signs: 20:03 BP 145 / 83; Pulse 75; Resp 18 S; Temp 97.5(O); Pulse Ox 100% on R/A; Weight 61.69 kg lg3 (R); Height 5 ft. 4 in. ; 22:00 BP 148 / 93; Pulse 84; Resp 17 S; Pulse Ox 100% on R/A; lg3 20:03 Body Mass Index 23.34 (61.69 kg, 162.56 cm) lg3 Laceration: 22:48 Wound Repair of 1cm ( 0.4in ) subcutaneous laceration to left taoism. Linear shaped.. sp4 Hemostasis noted.. Distal neuro/vascular/tendon intact. Anesthesia: Wound infiltrated with 5 mls of 1% lidocaine. Wound prep: Moderate cleansing by nurse by in. Skin closed with 3 5-0 Prolene using interrupted sutures and sterile technique. Dressed with Left to air . Patient tolerated well. MDM: 20:36 Patient medically screened. sp4 22:48 Differential diagnosis: hip fracture, intertrochanteric fracture, femoral neck sp4 fracture, femoral shaft fracture, bursitis, arthritis, strain. Data reviewed: vital signs, nurses notes. 22:57 Data reviewed: EMS record, old medical records, lab test result(s), radiologic studies, sp4 plain films. Consideration of Admission/Observation Escalation of care including admission/observation considered. Management of patient was discussed with the following: Hospitalist: Admit team . [employer] Supervisor: Orthopedist Dr. Gutierres. ED course: Patient has a left intertrochanteric femur fracture without displacement. Patient has been discussed with orthopedist and orthopedist accepts patient for consultation. Patient was also discussed with admitting team who accepts patient for admission for left femur fixation. 01/11 20:26 Order name: Basic Metabolic Panel; Complete Time: 22:50 4 01/11 20:26 Order name: CBC with Diff; Complete Time: 22:50 4 01/11 20:26 Order name: Type And Screen [facility] 01/11 20:26 Order name: Urinalysis w/ reflexes; Complete Time: 00:49 sp4 01/11 20:27 Order name: SARS RAPID; Complete Time: 00:49 4 01/11 20:27 Order name: LFT's; Complete Time: 22:50 4 01/11 22:57 Order name: Alcohol Level; Complete Time: 00:49 sp4 01/11 22:57 Order name: Urine Drug Screen; Complete Time: 00:49 4 01/12 00:14 Order name: Antibody Identification [facility] 01/11 20:26 Order name: XRAY Chest (1 view); Complete Time: 22:50 4 01/11 20:27 Order name: Femur Left XRAY; Complete Time: 22:50 [facility] 01/11 22:36 Order name: Pelvis [facility] 01/11 23:17 Order name: Head C Spine MPR Wo Con CT [facility] 01/12 00:49 Order name: Wrist Left (3 View) XRAY [facility] 01/11 20:26 Order name: Labs collected and sent; Complete Time: 21:58 [facility] 01/11 20:27 Order name: [place]; Complete Time: 21:58 [facility] 01/11 20:36 Order name: Dressing - Wound; Complete Time: 20:49 4 01/11 20:36 Order name: Gloves, Sterile; Complete Time: 20:49 [facility] 01/11 20:36 Order name: Setup Suture Tray; Complete Time: 20:49 4 01/12 01:34 Order name: Splint - Sugar Tong - Forearm: left; Complete Time: 02:37 la1 Administered Medications: 21:57 Drug: Tetanus-Diphtheria Toxoid IM Adult 0.5 ml {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 Exp: lg3 01/16/2024. Lot #: [id number]. } Route: IM; Site: right deltoid; 01/12 00:53 Follow up: Response: (VIS) Vaccine information sheet provided today. Questions and/or lg3 concerns addressed. VIS edition date: Mar 13, 2021.; No adverse reaction 01/11 21:58 Drug: morphine IVP or IV 4 mg Route: IVP; Infused Over: 4 mins; Site: right forearm; lg3 01/12 00:53 Follow up: Response: No adverse reaction lg3 01/11 21:58 Drug: Ondansetron IVP 4 mg Route: IVP; Site: right forearm; lg3 01/12 00:53 Follow up: Response: No adverse reaction lg3 01/11 22:26 Drug: Ativan IVP 1 mg Route: IVP; Site: right forearm; lg3 01/12 00:53 Follow up: Response: No adverse reaction; Anxiety decreased; RASS: Drowsy (-1) lg3 01/11 22:27 Drug: morphine IVP or IV 4 mg Route: IVP; Infused Over: 4 mins; Site: right forearm; lg3 01/12 00:52 Follow up: Response: No adverse reaction; Pain is decreased lg3 00:58 Drug: Lidocaine Infiltration (1 %) 20 ml Volume: 20 ml; Route: Infiltration; lg3 00:59 Follow up: Response: No adverse reaction lg3 Disposition Summary: 01/11/23 23:00 Hospitalization Ordered Hospitalization Status: Inpatient Admission sp4 Provider: Pawan Amador sp4 Location: Telemetry/[facility] (Inpatient) sp4 Condition: Stable sp4 Problem: new sp4 Symptoms: are unchanged sp4 Bed/Room Type: Standard sp4 Room Assignment: [facility](01/12/23 00:30) Diagnosis - Left femur intertrochanteric fracture, left facial temporal laceration initial sp4 encounter. Acute fall at home - Nondisplaced intertrochanteric fracture of left femur, initial encounter for closed sp4 fracture Forms: - Medication Reconciliation Form sp4 - SBAR form sp4 Signatures: Dispatcher [employer] EDMS Teresa Cohn RN RN mw Blaine Lambert, JUMPBASTING MACHINE OPERATOR-C JUMPBASTING MACHINE OPERATOR-Cla1 Camila Jo, GLENN RN lg3 Steve Rivera MD MD sp4 Corrections: (The following items were deleted from the chart) 01/11 22:24 20:27 Pelvis+RAD.RAD.BRZ ordered. EDMA EDMS 01/12 00:30 01/11 23:00 sp4 mw
[2023-01-11 23:42] LABS: Renal Epithelial <5 /HPF (None Seen); Urine Bacteria 20-50 /HPF (<20); Urine Bilirubin NEGATIVE (Negative); Urine Blood Negative (Negative); Urine Clarity Turbid (Clear); Urine Color Light-Yellow (Yellow); Urine Glucose NEGATIVE (Negative); Urine Mucus Slight /HPF (None Seen); Urine Protein TRACE (Negative); Urine RBC <5 /HPF (None Seen); Urine Urobilinogen Normal (Normal)
[2023-01-11 23:50] LABS: SARS-CoV-2 Antigen Rapid Res Negative (Negative)
[2023-01-11 23:54] LABS: Barbiturates NEGATIVE (NEGATIVE); Benzodiazepines NEGATIVE (NEGATIVE); Cocaine NEGATIVE (NEGATIVE); METHAMPHETAM POSITIVE (NEGATIVE); Methadone NEGATIVE (NEGATIVE); Opiates NEGATIVE (NEGATIVE); Phencyclidine NEGATIVE (NEGATIVE); THC Cannibis POSITIVE (NEGATIVE)
--- NOTE | 2023-01-12 02:00 | P.HP ---
Certification for Inpatient Patient admitted to: Inpatient With expected LOS: >2 Midnights Patient will require the following post-hospital care: None Practitioner: I am a practitioner with admitting privileges, knowledge of patient current condition, hospital course, and medical plan of care. Services: Services provided to patient in accordance with Admission requirements found in Title 42 Section 412.3 of the Code of Federal Regulations <Blaine Lambert - Last Filed: 01/12/23 01:58> Patient History Date of Service: 01/12/23 Reason for admission: Left hip fracture History of Present Illness: 62-year-old female with history of hypertension, hyperlipidemia presents to the emergency department after sustaining a fall resulting in fracture of the left hip, left distal radius. She is oriented x3 but her speech is pressured, mildly slurred she appears confused. She was evaluated in the emergency department CT of the head/neck was negative for acute findings, x-ray of the left hip showed intertrochanteric femur fracture, x-ray of the left wrist showed distal radial fracture. Labs showed creatinine of 1.62 hemoglobin 11.1 hematocrit 33.2 UDS was positive for amphetamines, THC. She will need to be admitted for management of her hip fracture, wrist fracture. Orthopedics consulted, case discussed with ER physician last night. 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 - Family History Mother -: Heart disease Father -: Cancer - Social History Smoking Status: Current every day smoker Alcohol use: Yes CD- Drugs: No Caffeine use: Yes Place of Residence: Home <Blaine Lambert - Last Filed: 01/12/23 01:58> Date of Service: 01/12/23 <Pawan Amador - Last Filed: 01/12/23 16:44> Allergies venom-honey bee Adverse Reaction (Verified 08/10/22 22:34) Anaphylaxis Home Medications: Aspirin Chewable [Aspirin Chewable*] 81 mg PO DAILY #1 tab.chew 08/12/22 lisinopriL [Lisinopril] 5 mg PO DAILY #30 tab 08/12/22 Amlodipine [Norvasc*] 5 mg PO DAILY 01/12/23 Review of Systems 10-point ROS is otherwise unremarkable Musculoskeletal: Other (Hip pain, left wrist pain) <Blaine Lambert - Last Filed: 01/12/23 01:58> Physical Examination - Physical Exam General: Alert, In no apparent distress, Oriented x3 HEENT: Atraumatic, PERRLA, Mucous membr. moist/pink, EOMI, Sclerae nonicteric Neck: Supple, 2+ carotid pulse no bruit, No LAD, Without JVD or thyroid abnormality Respiratory: Clear to auscultation bilaterally, Normal air movement Cardiovascular: Regular rate/rhythm, Normal S1 S2 Capillary refill: <2 Seconds Gastrointestinal: Normal bowel sounds, No tenderness Musculoskeletal: Swelling (Left wrist), Tenderness (Tenderness over left hip) Integumentary: No rashes Neurological: Normal speech, Normal strength at 5/5 x4 extr, Normal tone, Normal affect - Studies Laboratory Data (last 24 hrs) 01/11/23 21:27: WBC 9.80, Hgb 11.1 L, Hct 33.2 L, Plt Count 522 H 01/11/23 21:27: Sodium 135 L, Potassium 3.5, BUN 21 H, Creatinine 1.62 H, Glucose 88, Total Bilirubin 0.7, AST 23, ALT 29, Alkaline Phosphatase 72 <Blaine Lambert - Last Filed: 01/12/23 01:58> - Studies Laboratory Data (last 24 hrs) 01/11/23 21:27: WBC 9.80, Hgb 11.1 L, Hct 33.2 L, Plt Count 522 H 01/11/23 21:27: Sodium 135 L, Potassium 3.5, BUN 21 H, Creatinine 1.62 H, Glucose 88, Total Bilirubin 0.7, AST 23, ALT 29, Alkaline Phosphatase 72 <Pawan Amador - Last Filed: 01/12/23 16:44> Assessment and Plan - Plan Assessment: Left intertrochanteric femur fracture Left distal radial fracture Hypertension Amphetamine/THC abuse Plan: Left intertrochanteric femur fracture Left distal radial fracture Case was discussed with orthopedics last night, splint in place for left distal radial fracture. Patient is n.p.o. in anticipation of operative management possibly tomorrow. As needed pain medications ordered. Hypertension Continue home medications Amphetamine/THC abuse Counseled on need for cessation. DVT PPX: SCD Code status: Full Discharge Plan: Home Plan to discharge in: Greater than 2 days - Advance Directives Does patient have a Living Will: No Does patient have a Durable POA for Healthcare: No - Code Status/Comfort Care Code Status Assessed: Yes (Full code) Critical Care: No Time Spent Managing Pts Care (In Minutes): 55 <Blaine Lambert - Last Filed: 01/12/23 01:58> Physician Review: Patient Assessed, Agree with Above Assessment and Plan <Pawan Amador - Last Filed: 01/12/23 16:44>
[2023-01-12] MEDS: NA CHLORIDE 0.9% 1,000 ML IV SCH ×3 (03:30→12:42)
[2023-01-12 03:59] VITALS: BMI 22.8
[2023-01-12 06:56] LABS: Absolute Lymphocytes (CBC) 1.3 K/uL (0.7-4.9); Hematocrit 32.3 % (36.0-45.0); MCV 89.3 fL (80-100); MPV 7.3 fL (7.6-11.3); RBC Red Blood Cell Count 3.62 M/uL (3.86-4.86)
[2023-01-12 07:11] LABS: Potassium 3.3 mEq/L (3.5-5.1)
--- NOTE | 2023-01-12 10:55 | RAD REPORT ---
EXAM DESCRIPTION: Head C Spine MPR w/o Contrast CLINICAL HISTORY: Fall. TECHNIQUE: 5 mm axial images of the intracranial structures were obtained without intravenous contra st. Coronal and sagittal reformatted images were obtained. COMPARISON: None.. DOSE OPTIMIZATION: This facility uses dose optimization techniques as appropriate to perform exams, i ncluding at least one of the following techniques: 1. Automated exposure control. 2. Adjustment of the mA and/or kV according to patient size (this includes techniques or standardized protocols for targeted exams where dose is matched to the indication/reason for exam, i.e. extremiti es or head). 3. Use of iterative reconstructive technique. FINDINGS: No abnormal acute extracerebral fluid collections are demonstrated. The cortical sulci, ventricles, and cisterns are within normal limits. There are no areas of altered attenuation to suggest acute hemorrhage, acute infarct, or mass lesio n. The visualized portions of the paranasal sinuses and mastoid air cells are clear. IMPRESSION: Normal study. CLINICAL HISTORY: Trauma with pain. TECHNIQUE: CT scan of the cervical spine without contrast. 2.5 mm reconstruction axial images were o btained along with coronal and sagittal reformatted images. COMPARISON: None. DOSE OPTIMIZATION: This facility uses dose optimization techniques as appropriate to perform exams, i ncluding at least one of the following techniques: 1. Automated exposure control. 2. Adjustment of the mA and/or kV according to patient size (this includes techniques or standardized protocols for targeted exams where dose is matched to the indication/reason for exam, i.e. extremiti es or head). 3. Use of iterative reconstructive technique. FINDINGS: BONY STRUCTURES: C1: No fracture or subluxation. C2: No fracture or subluxation. There is mild facet arthropathy bilaterally at C2-C3. C3: No fracture or subluxation. There is severe facet arthropathy on the left at C3-C4. C4: No fracture or subluxation. There is mild facet arthropathy bilaterally at C4-C5. C5: No fracture or subluxation. There is moderately severe bilateral facet arthropathy at C5-C6. C6: No fracture or subluxation. C7: No fracture or subluxation. There is severe facet arthropathy on the left. T1: No fracture or subluxation. T2: No fracture or subluxation. SOFT TISSUES: There is atherosclerosis about the left carotid artery. LUNG APICES: No pneumothorax. IMPRESSION: 1. No fracture or subluxation. 2. Degenerative changes throughout cervical spine as described above. Electronically signed by: René Grijalva MD 01/12/2023 12:04 AM CDT Due to temporary technical issues with the PACS/Fluency reporting system, reports are being signed by the in house radiologist without review as a courtesy to ensure prompt reporting. The interpreting r adiologist is fully responsible for the content of the report.
--- NOTE | 2023-01-12 10:56 | RAD REPORT ---
EXAM DESCRIPTION: Wrist Left 3 View CLINICAL HISTORY: PAIN TECHNIQUE: Three views of the left wrist are submitted. COMPARISON: None available for comparison FINDINGS: Comminuted fracture of the distal radius with mild dorsal displacement of the distal fragm ents. Fracture of the distal ulna at the base of the styloid process. Osteoarthritic changes with narrowing of the distal radiocarpal joint space. Carpal bones are otherwise intact. IMPRESSION: Fractures of the distal radius and ulna. Electronically signed by: Marcus Dobbs MD 01/12/2023 1:31 AM CDT Due to temporary technical issues with the PACS/Fluency reporting system, reports are being signed by the in house radiologist without review as a courtesy to ensure prompt reporting. The interpreting r adiologist is fully responsible for the content of the report.
--- NOTE | 2023-01-12 11:07 | RAD REPORT ---
EXAM DESCRIPTION: Pelvis CLINICAL HISTORY: Fall with pain. TECHNIQUE: Pelvis. COMPARISON: None. FINDINGS: There is a minimally displaced intratrochanteric fracture the proximal left femur. There is moderately severe osteoarthritis about the hip joints bilaterally. IMPRESSION: 1. Intertrochanteric fracture of the proximal left femur. Electronically signed by: René Grijalva MD 01/11/2023 11:56 PM CDT Due to temporary technical issues with the PACS/Fluency reporting system, reports are being signed by the in house radiologist without review as a courtesy to ensure prompt reporting. The interpreting r adiologist is fully responsible for the content of the report.
[2023-01-12] MEDS: MORPHINE 2 MG/ML SYR IV PRN ×2 (12:42→21:27)
[2023-01-12] MEDS ORDERED: Ringers Lactate 1,000 ML IV ONE ×2 (14:56→17:18)
[2023-01-12] MEDS ORDERED: dexAMETHasone 10 MG/ML VIAL ONE (15:06)
[2023-01-12] MEDS ORDERED: MIDAZOLAM HCL 2 MG/2 ML INJ ONE (15:12)
[2023-01-12] MEDS ORDERED: BUPIVACAINE 0.75% (PF) 2 ML SP ONE (15:40)
[2023-01-12] MEDS ORDERED: propofoL 200 MG/20 ML VIAL IV ONE ×2 (15:44→16:49)
[2023-01-12] MEDS ORDERED: CEFAZOLIN SODIUM 1 GM/VIAL ONE (16:00)
[2023-01-12] MEDS ORDERED: TRANEXAMIC ACID 1,000 MG/10 ML VIAL IV ONE (16:02)
[2023-01-12] MEDS ORDERED: FENTANYL CITR 100 MCG/2 ML ONE (16:34)
[2023-01-12] MEDS ORDERED: ONDANSETRON 4 MG/2 ML VIAL ONE (18:11)
--- NOTE | 2023-01-12 18:13 | P.BOP ---
Preoperative diagnosis: left IT Fx and left distal radius Postoperative diagnosis: same Primary procedure: CAROLYNN left hip, Orif left wrist Estimated blood loss: 100 ccs Anesthesia: General Complications: None Transferred to: Recovery Room Condition: Good
--- NOTE | 2023-01-12 19:36 | RAD REPORT ---
EXAM DESCRIPTION: RAD - Wrist Left 2 View - 01/12/2023 6:55 pm CLINICAL HISTORY: LEFT Wrist in OR COMPARISON: None available. FINDINGS: Twenty-one Images were sent to PACS, documenting needle positions during image guided left wrist internal fixation procedure. No radiologist was available for the procedure, nor will any imag e interpretation he provided. Please refer to the procedural report for additional details. Fluoroscopy time: 0.6 Minutes. IMPRESSION: Documentation of fluoroscopy utilization as above.
--- NOTE | 2023-01-12 19:37 | RAD REPORT ---
EXAM DESCRIPTION: - Hip in OR Left 2 View - 01/12/2023 7:02 pm CLINICAL HISTORY: Hip Rodding COMPARISON: None available. FINDINGS: Twenty-two Images were sent to PACS, documenting needle positions during an image guided l eft hip internal fixation procedure. No radiologist was available for the procedure, nor will any [place] interpretation he provided. Please refer to the procedural report for additional details. Fluoroscopy time: 0.8 Minutes. IMPRESSION: Documentation of fluoroscopy utilization as above.
[2023-01-12] MEDS: CEFAZOLIN 1 GM in NA CHLORIDE 0.9% 50 ML IVPB SCH (21:30)
--- NOTE | 2023-01-12 22:11 | OP ---
Date of Procedure: 01/12/2023 Surgeon: Ad Gutierres MD Preoperative Diagnoses: 1.Left hip displaced intertrochanteric fracture. 2.Left extraarticular distal radius fracture, which is displaced. Postoperative Diagnoses: 1.Left hip displaced intertrochanteric fracture. 2.Left extraarticular distal radius fracture, which is displaced. Procedures: 1.Left closed reduction with intramedullary sabrina fixation using the Biomet AFFIXUS nail of the hip. 2.Open reduction internal fixation of the left distal radius using the Acumed 2 volar radius plating set. Estimated Blood Loss: 100 cc. Complications: There were no complications. Indications: Ms. Thakkar is a 62-year-old female who unfortunately fell injuring her left wrist as well as left hip. She was seen and examined in the Emergency Department where she was ruled out for other injuries with the exception of a laceration above her eye, which was treated by other physician s. Review of her x-rays reveals a displaced extraarticular fracture of the distal radius with signif icant angulation. Also seen is a left intertrochanteric fracture, which is displaced. Risks, benefi ts, and alternatives of different methods of treating this have been discussed with the patient. She states she understands things as presented and wishes to proceed. I do believe it is more than reas onable to treat the left wrist in a closed manner with reduction and casting. However, given her sim ultaneous left hip fracture, I believe she would be much more functional without the use of a long-ar m cast and the chances of the re-displacement are less. She agrees to proceed. Description Of Procedure: The patient was taken to the operating room and placed in supine position. Spinal anesthesia was attempted by Anesthesia staff; however, was not known whether this is complet grace effective as the patient was continuing to complain of left hip pain. She was then transferred o o the fracture table and undergoes general anesthesia. After this, she was then properly positione d on the fracture table with all of her long bones and prominences being checked by staff. After thi s, her left lower extremity was then placed in a position of reduction and good AP and lateral x-rays were able to be taken with the C-arm. The left hip was then prepped and draped in the usual sterile fashion. After this, the trochanter was marked out and a vertical incision was made superior to the trochanter, staying down carefully through skin and fascia. A finger was used to palpate the greate r trochanter, which was unfortunately broken, but does allow for good location of landmarks and the s tarting awl was then placed. After the starting awl was placed, the guide pin is placed without diff iculty across the fracture site. The dredge deckhand was then used to ream past the lesser trochanter an d an AFFIXUS nail size 11 135 degree was then placed to appropriate depth. The cephalomedullary scre w was then placed in standard fashion checking under biplanar C-arm radiography to ensure it is the c orrect position. This was followed by placement of the antirotation screw. Following this, the atte ntion was then turned distally as 1 distal interlocking screw was then placed. The wound was irrigat ed and the fascia was closed using heavy Vicryl sutures followed by closure of skin with Vicryl follo wed by andrew. The patient was then placed in the Aquacel dressing and carefully moved from the fra cture table onto a standard operating table with a hand table. Her splint was removed and a tourniqu et was placed. Her left upper extremity was then prepped and draped in the usual sterile fashion pro cedure. C-arm was brought in to ensure we get good AP and lateral views of the wrist. After this a standard volar approach of Sesar was then performed carefully through skin only with meticulous hemos tasis being maintained using bipolar electrocautery. This leads down to the tendon of the flexor car pi radialis, which was then moved gently to the radial side to protect the radial artery. The underl radha sheath was then divided, which allowed for visualization of the flexor pollicis longus muscle be lly and tendon, which was then transferred medially to protect the median nerve. The pronator quadra tus was then divided in its midsubstance and gently moved off the flat surface of the radius. A luke dard reduction maneuver was then performed, which shows a near anatomic reduction and the narrow Acum ed 2 volar radius plate was then applied in a standard fashion. The initial screw being the oblong s crew, which held it in the correct position. Some pressure on further reduction was then used to josh ce the distal radius next to the distal end of the plate. This was then secured using an unlocked sc rew, which brings it down to the plate. After this, the remainder of the distal screw holes were the n used for placement of the locked pegs. The screw was then removed and replaced with a locked peg. The remaining 2 screws were then placed without difficulty with care being taken to check on both AP and lateral x-rays for proper position. The wound was then gently irrigated and the skin was closed using interrupted nylon sutures and horizontal mattress sutures. The wound was cleaned and she was placed in a very well-padded sterile dressing as well as a soft roll and a 3 inch Orthoglass splint, which was secured using a lightly wrapped Derik wrap. After this, she was then awakened and taken to r ecovery room in good condition. There were no complications. /SHELLIE Voice ID: [id number] Report ID: [id number]
--- NOTE | 2023-01-12 22:14 | CON ---
Date of Consultation: 01/12/2023 History Of Present Illness: This is my first time seeing this patient to my knowledge. She is a 62- year-old female who unfortunately fell injuring her left side. She was seen and examined in the [facility] Department where she was ruled out for injuries other than a small laceration over the left eye , which has been sutured; a left wrist fracture, which was placed in a sugar-tong splint; and a left hip intertrochanteric fracture. She is admitted to the hospital for further care and I am consulted to see her. Physical Examination: All of her long bones and joints were palpated without pain or crepitation with the exception of her wrist and her hip. She does have a ring on her left hand, which I have told nursing to remove today. Imaging: Review of her x-rays demonstrate a displaced left intertrochanteric fracture with a left di splaced extraarticular fracture of the distal radius. I discussed with her risks, benefits, and alte rnatives to different methods of treating these. Assessment: 1.Left extraarticular displaced distal radius fracture. 2.Left displaced intertrochanteric fracture. Plan: At this time, I have spoken with Anesthesia and they tell me that they do not have any problem s with her positive drug screen and that we could move forward with operating today. I have discusse d risks, benefits, and alternatives of different methods with the patient and we will plan for a left hip closed reduction intramedullary sabrina fixation along with a left wrist open reduction internal fix ation. The left wrist could be treated closed with casting and close observation or could be treated with other methods such as pin fixation. Given her history as well as concomitant polytrauma, I thi nk it would be best to proceed with open reduction internal fixation, which would allow for a more st able wrist throughout her healing process. She says she understands the risks as presented and I sti ll need to speak with the hospitalist regarding clearance to see if he wants to have any other consul tations done. We will most likely proceed with this, this evening. I have told the nurse to have he r n.p.o. and suggested SCDs. /SHELLIE Voice ID: [id number] Report ID: [id number]
[2023-01-13] MEDS: MORPHINE 2 MG/ML SYR IV PRN ×4 (01:50→20:22)
[2023-01-13] MEDS: NA CHLORIDE 0.9% 1,000 ML IV SCH ×2 (05:40→16:38)
[2023-01-13 06:09] LABS: Hematocrit 29.3 % (36.0-45.0)
[2023-01-13 06:25] LABS: Potassium 3.9 mEq/L (3.5-5.1)
[2023-01-13] MEDS: CEFAZOLIN 1 GM in NA CHLORIDE 0.9% 50 ML IVPB SCH ×2 (08:55→16:38)
[2023-01-13] MEDS: HYDROCODONE/APAP 5/325 MG TAB PO PRN ×2 (09:32→23:29)
[2023-01-13 15:01] LABS: Hematocrit 26.4 % (36.0-45.0)
--- NOTE | 2023-01-13 19:00 | P.PN ---
Subjective Date of Service: 01/13/23 Chief Complaint: Left hip fracture POD # 1 CAROLYNN left hip, ORIF left wrist. She tolerated the procedure well. Her pain is well-controlled. She denies any chest pain, palpitations, or shortness of breath. PT consult requested. Review of Systems 10-point ROS is otherwise unremarkable Musculoskeletal: Hand Pain (left wrist), Leg Pain (left hip) Physical Examination - Vital Signs Temperature: 97.9 F Blood Pressure: 112/58 Pulse: 72 Respirations: 16 Pulse Ox (%): 98 - Physical Exam General: Alert, In no apparent distress, Oriented x3 HEENT: Atraumatic, Sclerae nonicteric Neck: JVD not distended Respiratory: Clear to auscultation bilaterally, Normal air movement Cardiovascular: No edema, Regular rate/rhythm, Normal S1 S2, No gallops, No rubs, No murmurs Gastrointestinal: Normal bowel sounds, Soft and benign, Non-distended, No tenderness, No rebound, No guarding Musculoskeletal: Other (left hip in surgical dressing. left wrist in cast. ) Integumentary: No rashes Neurological: Normal speech, Normal affect Assessment And Plan - Plan # Traumatic Ground-Level Fall complicated by an Acute Left Intertrochanteric Femur Fracture and Distal Left Radius/Ulnar Fractures - Radiology: - CT head/cervical spine = "1. No fracture or subluxation. 2. Degenerative changes throughout cervical spine as described above." - Pelvic x-ray = "1. Intertrochanteric fracture of the proximal left femur." - Left femur x-ray = "Intratrochanteric fracture the proximal left femur is seen. No dislocation is evident." - Left wrist x-ray = "Fractures of the distal radius and ulna." - Orthopedic Surgery consulted and spoke with Dr. Gutierres - recommendations appreciated - S/P CAROLYNN left hip, ORIF left wrist on 01/12 - Consulted PT/OT - VTE prophylaxis with SQ enoxaparin - PRN pain control # Hypertension - Continue home amlodipine, lisinopril # Substance Use Disorder - THC, Amphetamines - Substance cessation counseling provided Pawan Amador M.D.
[2023-01-13] MEDS: ENOXAPARIN 40 MG/0.4 ML SQ SCH (20:23)
[2023-01-14] MEDS: MORPHINE 2 MG/ML SYR IV PRN ×2 (02:33→18:08)
[2023-01-14] MEDS: NA CHLORIDE 0.9% 1,000 ML IV SCH (02:34)
[2023-01-14 04:58] LABS: Hematocrit 25.4 % (36.0-45.0)
[2023-01-14 05:09] LABS: Potassium 3.7 mEq/L (3.5-5.1)
[2023-01-14] MEDS: lisinopriL 5 MG TAB PO SCH (08:44)
[2023-01-14] MEDS: HYDROCODONE/APAP 5/325 MG TAB PO PRN ×3 (08:45→21:46)
[2023-01-14] MEDS: ASPIRIN 81 MG CHEWABLE TABLET PO SCH (08:45)
[2023-01-14] MEDS: AMLODIPINE 5 MG TAB PO SCH (08:46)
[2023-01-14] MEDS: ENOXAPARIN 40 MG/0.4 ML SQ SCH (17:16)
--- NOTE | 2023-01-14 18:41 | P.PN ---
Subjective Date of Service: 01/14/23 Chief Complaint: Left hip fracture POD # 2 CAROLYNN left hip, ORIF left wrist. She tolerated the procedure well. Her pain is well-controlled, but increases to an 8/10 with activity. She worked well with PT yesterday, but she reports that her ability to participate was limited by pain. She denies any chest pain, palpitations, or shortness of breath. Review of Systems 10-point ROS is otherwise unremarkable Musculoskeletal: Arm Pain (left wrist), Leg Pain (left hip) Physical Examination - Vital Signs Temperature: 97.6 F Blood Pressure: 116/57 Pulse: 81 Respirations: 22 Pulse Ox (%): 97 Assessment And Plan - Plan - Physical Exam General: Alert, In no apparent distress, Oriented x3 HEENT: Atraumatic, Sclerae nonicteric Neck: JVD not distended Respiratory: Clear to auscultation bilaterally, Normal air movement Cardiovascular: No edema, Regular rate/rhythm, No murmurs Gastrointestinal: Soft, Non-distended, No tenderness Musculoskeletal: Other (left hip in surgical dressing. left wrist in cast.) Integumentary: No rashes Neurological: Normal speech, Normal affect # Traumatic Ground-Level Fall complicated by an Acute Left Intertrochanteric Femur Fracture and Distal Left Radius/Ulnar Fractures - Radiology: - CT head/cervical spine = "1. No fracture or subluxation. 2. Degenerative changes throughout cervical spine as described above." - Pelvic x-ray = "1. Intertrochanteric fracture of the proximal left femur." - Left femur x-ray = "Intratrochanteric fracture the proximal left femur is seen. No dislocation is evident." - Left wrist x-ray = "Fractures of the distal radius and ulna." - Orthopedic Surgery consulted and spoke with Dr. Gutierres - recommendations appreciated - S/P CAROLYNN left hip, ORIF left wrist on 01/12 - Consulted PT/OT - VTE prophylaxis with SQ enoxaparin - PRN pain control # Hypertension - Continue home amlodipine, lisinopril # Substance Use Disorder - THC, Amphetamines - Substance cessation counseling provided Pawan Amador M.D.
[2023-01-15] MEDS: HYDROCODONE/APAP 5/325 MG TAB PO PRN ×4 (03:58→22:50)
[2023-01-15 04:51] LABS: Hematocrit 27.1 % (36.0-45.0)
[2023-01-15 05:18] LABS: Potassium 3.7 mEq/L (3.5-5.1)
[2023-01-15] MEDS: AMLODIPINE 5 MG TAB PO SCH ×2 (08:20→08:21)
[2023-01-15] MEDS: ASPIRIN 81 MG CHEWABLE TABLET PO SCH (08:20)
[2023-01-15] MEDS: lisinopriL 5 MG TAB PO SCH (08:21)
[2023-01-15] MEDS: ONDANSETRON 4 MG/2 ML VIAL IV PRN (11:39)
[2023-01-15] MEDS: ENOXAPARIN 40 MG/0.4 ML SQ SCH (16:20)
--- NOTE | 2023-01-15 18:26 | P.PN ---
Subjective Date of Service: 01/15/23 Chief Complaint: Left hip fracture POD # 3 CAROLYNN left hip, ORIF left wrist. She grades her pain a 6/10 in severity this morning. She continues to work well with PT. Per case management, we are unable to set up home health for her on discharge. She denies any chest pain, palpitations, or shortness of breath. Review of Systems 10-point ROS is otherwise unremarkable Musculoskeletal: Arm Pain (left), Leg Pain (left hip) Physical Examination - Vital Signs Temperature: 98.5 F Blood Pressure: 132/60 Pulse: 88 Respirations: 16 Pulse Ox (%): 100 Assessment And Plan - Plan - Physical Exam General: Alert, In no apparent distress, Oriented x3 HEENT: Atraumatic, Sclerae nonicteric Neck: JVD not distended Respiratory: Clear to auscultation bilaterally, Normal air movement Cardiovascular: No edema, Regular rate/rhythm, No murmurs Gastrointestinal: Soft, Non-distended, No tenderness Musculoskeletal: Other (left hip in surgical dressing. left wrist in cast.) Integumentary: No rashes Neurological: Normal speech, Normal affect # Traumatic Ground-Level Fall complicated by an Acute Left Intertrochanteric Femur Fracture and Distal Left Radius/Ulnar Fractures - Radiology: - CT head/cervical spine = "1. No fracture or subluxation. 2. Degenerative changes throughout cervical spine as described above." - Pelvic x-ray = "1. Intertrochanteric fracture of the proximal left femur." - Left femur x-ray = "Intratrochanteric fracture the proximal left femur is seen. No dislocation is evident." - Left wrist x-ray = "Fractures of the distal radius and ulna." - Orthopedic Surgery consulted and spoke with Dr. Gutierres - recommendations appreciated - S/P CAROLYNN left hip, ORIF left wrist on 01/12 - Consulted PT/OT - Doing well with PT. Anticipate discharge in the next 1-2 days if she continues to improve from a functional standpoint - VTE prophylaxis with SQ enoxaparin - PRN pain control # Hypertension - Continue home amlodipine, lisinopril # Substance Use Disorder - THC, Amphetamines - Substance cessation counseling provided Pawan Amador M.D.
[2023-01-16] MEDS: HYDROCODONE/APAP 5/325 MG TAB PO PRN ×3 (07:28→19:57)
[2023-01-16] MEDS: ASPIRIN 81 MG CHEWABLE TABLET PO SCH (07:28)
[2023-01-16] MEDS: lisinopriL 5 MG TAB PO SCH (07:28)
--- NOTE | 2023-01-16 14:32 | P.PN ---
Subjective Date of Service: 01/16/23 Chief Complaint: Left hip fracture POD # 4 CAROLYNN left hip, ORIF left wrist. She states that her pain is gradually improving. Yesterday, she was able to ambulate about 200 feet with PT. Disposition planning is in process, but for a safe discharge, will need a special walker that has a left arm rest, given her wrist fracture. Appreciate CM assistance. Review of Systems 10-point ROS is otherwise unremarkable Musculoskeletal: Arm Pain (left wrist), Leg Pain (left hip) Physical Examination - Vital Signs Temperature: 97.9 F Blood Pressure: 128/72 Pulse: 84 Respirations: 18 Pulse Ox (%): 98 Assessment And Plan - Plan - Physical Exam General: Alert, In no apparent distress, Oriented x3 HEENT: Atraumatic, Sclerae nonicteric Neck: JVD not distended Respiratory: Clear to auscultation bilaterally, Normal air movement Cardiovascular: No edema, Regular rate/rhythm, No murmurs Gastrointestinal: Soft, Non-distended, No tenderness Musculoskeletal: Other (left hip in surgical dressing. left wrist in cast.) Integumentary: No rashes Neurological: Normal speech, Normal affect # Traumatic Ground-Level Fall complicated by an Acute Left Intertrochanteric Femur Fracture and Distal Left Radius/Ulnar Fractures - Radiology: - CT head/cervical spine = "1. No fracture or subluxation. 2. Degenerative changes throughout cervical spine as described above." - Pelvic x-ray = "1. Intertrochanteric fracture of the proximal left femur." - Left femur x-ray = "Intratrochanteric fracture the proximal left femur is seen. No dislocation is evident." - Left wrist x-ray = "Fractures of the distal radius and ulna." - Orthopedic Surgery consulted and spoke with Dr. Gutierres - recommendations appreciated - S/P CAROLYNN left hip, ORIF left wrist on 01/12 - Consulted PT/OT - Doing well with PT. Anticipate discharge once we are able to secure a walker with a left armrest. Appreciate CM assistance. - VTE prophylaxis with SQ enoxaparin - PRN pain control # Hypertension - Continue home amlodipine, lisinopril # Substance Use Disorder - THC, Amphetamines - Substance cessation counseling provided Pawan Amador M.D.
[2023-01-16] MEDS: ENOXAPARIN 40 MG/0.4 ML SQ SCH (16:13)
[2023-01-16 17:38] LABS: Specific Gravity 1.011 (1.005-1.030); Urine Bacteria <20 /HPF (<20); Urine Bilirubin NEGATIVE (Negative); Urine Blood Negative (Negative); Urine Clarity Extremely Turbid (Clear); Urine Color Light-Yellow (Yellow); Urine Glucose NEGATIVE (Negative); Urine Mucus Slight /HPF (None Seen); Urine Protein NEGATIVE (Negative); Urine RBC <5 /HPF (None Seen); Urine Urobilinogen Normal (Normal); Urine WBC Clump Rare /HPF (None Seen)
[2023-01-17] MEDS: HYDROCODONE/APAP 5/325 MG TAB PO PRN ×4 (03:02→21:59)
[2023-01-17] MEDS: ASPIRIN 81 MG CHEWABLE TABLET PO SCH (07:56)
[2023-01-17] MEDS: lisinopriL 5 MG TAB PO SCH (07:56)
[2023-01-17] MEDS: AMLODIPINE 5 MG TAB PO SCH (07:56)
--- NOTE | 2023-01-17 09:50 | P.PN ---
Subjective Date of Service: 01/17/23 Patient's chart has been reviewed. Patient is currently doing well. Patient denies any new complaints. Patient is trying to ambulate with her walker but she is having to hop around. Physical therapy documented that she was able to get around 100 feet at a time. But she tells me she is pretty much having hop around at this time and not putting any pressure on that leg. She will probably need to go to inpatient rehabilitation. Review of Systems 10-point ROS is otherwise unremarkable Physical Examination - Vital Signs Temperature: 97.7 F Blood Pressure: 136/86 Pulse: 83 Respirations: 14 Pulse Ox (%): 100 - Physical Exam General: Alert, In no apparent distress, Oriented x3 Respiratory: Clear to auscultation bilaterally, Normal air movement Cardiovascular: Regular rate/rhythm, Normal S1 S2, No murmurs Gastrointestinal: Normal bowel sounds, Soft and benign, Non-distended, No tenderness Musculoskeletal: No clubbing, No swelling, No tenderness Neurological: Sensation intact, Cranial nerves 3-12 intact - Studies Medications List Reviewed: Yes Assessment & Plan - Problems (Diagnosis) (1) Fracture dislocation of left hip joint Current Visit: Yes Status: Acute (2) Radial fracture Current Visit: Yes Status: Acute (3) HTN (hypertension) Current Visit: Yes Status: Acute (4) Dyslipidemia Current Visit: Yes Status: Acute - Plan Plan: 1. Continue with physical therapy. Spoke with patient and patient wants to go to inpatient rehab 2. Continue pain control 3. Monitor hemodynamics 4. Continue with increased nutrition 5. GI and DVT prophylaxis Discharge Plan: Home Plan to discharge in: Greater than 2 days - Advance Directives Does patient have a Living Will: No Does patient have a Durable POA for Healthcare: No - Code Status/Comfort Care Code Status Assessed: Yes Code Status: Full Code Physician Review: Patient Assessed, Agree with Above Assessment and Plan Critical Care: No Time Spent Managing PTS Care (In Minutes): 45
[2023-01-17] MEDS: ONDANSETRON 4 MG/2 ML VIAL IV PRN ×2 (13:09→19:21)
[2023-01-17] MEDS: ENOXAPARIN 40 MG/0.4 ML SQ SCH (16:07)
[2023-01-17 20:34] VITALS: O2SAT 96
[2023-01-18] MEDS: HYDROCODONE/APAP 5/325 MG TAB PO PRN ×3 (05:58→18:51)
[2023-01-18] MEDS: AMLODIPINE 5 MG TAB PO SCH (09:12)
[2023-01-18] MEDS: ASPIRIN 81 MG CHEWABLE TABLET PO SCH (09:12)
[2023-01-18] MEDS: lisinopriL 5 MG TAB PO SCH (09:12)
[2023-01-18] MEDS ORDERED: levoFLOXacin 750 MG TAB PO SCH (12:00)
[2023-01-18] MEDS: ENOXAPARIN 40 MG/0.4 ML SQ SCH (16:47)
[2023-01-18 21:01] VITALS: BP 114/65; TEMP 97
== END 2023-01-18 20:15 | disposition home or self-care (01) | DRG 481 ==
LOC: ER 19:59 → 4TH 01-12 00:24
PROVIDERS: ADMIT Internal Medicine; ATTEND Hospitalist
PROC: 0JQ10ZZ Repair Face Subcutaneous Tissue and Fascia, Open Approach (ICD-10-PCS; 2023-01-12)
PROC: 0T9B70Z Drainage of Bladder with Drainage Device, Via Natural or Artificial Opening (ICD-10-PCS; 2023-01-12)
PROC: 2W39X1Z Immobilization of Left Upper Extremity using Splint (ICD-10-PCS; 2023-01-12)
PROC: 0QS736Z Reposition Left Upper Femur with Intramedullary Internal Fixation Device, Percutaneous Approach (ICD-10-PCS; principal; 2023-01-12 15:30)
PROC: 0PSJ04Z Reposition Left Radius with Internal Fixation Device, Open Approach (ICD-10-PCS; 2023-01-12 15:30)
DX: S72.142A Displaced intertrochanteric fracture of left femur, initial encounter for closed fracture (principal); S52.502A Unspecified fracture of the lower end of left radius, initial encounter for closed fracture; S52.602A Unspecified fracture of lower end of left ulna, initial encounter for closed fracture; I10 Essential (primary) hypertension; E78.5 Hyperlipidemia, unspecified; E03.9 Hypothyroidism, unspecified; F17.210 Nicotine dependence, cigarettes, uncomplicated; F15.10 Other stimulant abuse, uncomplicated; F12.10 Cannabis abuse, uncomplicated; S01.81XA Laceration without foreign body of other part of head, initial encounter; W19.XXXA Unspecified fall, initial encounter; Z20.822 Contact with and (suspected) exposure to COVID-19
CPT/HCPCS: 36415; 51702; 70450; 71045; 72125; 72170; 80048; 80076; 80307; 81001; 82077; 85014; 85018; 85025; 86850; 86870; 86900; 86901; 86902; 87077; 87086; 87088; 87186; 87811; 90471; 90714; 96374; 96375; 97110; 97116; 97161; 97165; 97530; 99285; J0690; J1100; J1650; J2001; J2250; J2270; J2405; J2704; J3010; J7030; J7120